=== PATIENT | male | born 1955 | race Caucasian/White ===

== ENCOUNTER 2016-10-05 20:36 | Emergency (ER) | payer OTHER ==
[~2016-10-05] VITALS: Ht 180.3 cm; Wt 64.2 kg
[~2016-10-05 20:36] MED LIST: AMAN100C18 PO; CARB1CAP21 PO; CARB1TAB PO; MULT-506 PO; RASA1TAB PO
[2016-10-05 20:44] VITALS: BP 96/61; PULSE 103; TEMP 36.9; O2SAT 97; Ht 180.3 cm; Wt 64.2 kg
--- NOTE | 2016-10-05 21:33 | DIAGNOSTIC IMAGING REPORT ---
LEFT SECOND FINGER 3 VIEWS CLINICAL HISTORY: Postreduction examination. Proximal interphalangeal joint dislocation. FINDINGS: 3 views of the left second finger are obtained. No prior studies are available for comparison at the time of dictation. The skeletal structures are well mineralized. No fracture is seen. The second metacarpophalangeal and interphalangeal joints are in anatomic alignment. Mild osteoarthritic change is present at the distal interphalangeal joint. Soft tissue edema is noted overlying the proximal interphalangeal joint. IMPRESSION: Soft tissue swelling with no radiographic evidence of fracture in the left second finger. Electronically signed by: Collins Noble M.D. 10/05/2016 9:31 PM Dictated Date/Time: 10/05/2016 9:30 PM
[2016-10-05] MEDS ORDERED: MELO7.5T5 PO (21:35)
[2016-10-05] MEDS ORDERED: METH500T37 PO (21:35)
[2016-10-05] MEDS ORDERED: CARB1CAP PO (21:35)
--- NOTE | 2016-10-05 22:22 | EMERGENCY ROOM VISIT NOTE ---
ED Visit Note First contact with patient: 21:06 CHIEF COMPLAINT: Left second finger injury times several hours HISTORY OF PRESENT ILLNESS: Patient is a [id number] 61-year-old white male who presents the emergency department accompanied by his for evaluation of a left second finger injury. He lost balance on the stairs and fell, injuring his left second finger. He had immediate onset of pain and deformity. There was no laceration or bleeding. He rates his pain a 7/10. He did not take any medications, nor perform his symptoms. He has been unable to move it at the PIP joint since and there is moderate and constant pain. He denies any numbness or tingling. REVIEW OF SYSTEMS: Review of systems as per HPI. All other systems reviewed were negative. At least 6 systems reviewed. PMH: Electronic medical records are reviewed and summarized as above/below. See Problem List. SOCIAL HISTORY: Patient living at home with his . He is retired. Nonsmoker. PHYSICAL EXAM: Vital Signs: Reviewed Nurse's notes. CONSTITUTIONAL: Patient is a pleasant, well-appearing 61-year-old white male who is awake and alert and seated at the bedside in no acute distress. is present at bedside as well. MUSCULOSKELETAL: Examination of the left second finger show an obvious deformity at the PIP joint with suspected dorsal dislocation of the middle phalanx. There is no pain over the MCP or the DIP. Capillary refills less than 2 seconds. Sensation to light touch is intact. Skin is intact without laceration. EMERGENCY DEPARTMENT COURSE: The patient was seen and evaluated as above. Options were discussed with the patient, and he was agreeable to a reduction attempt foregoing anesthesia. The left second PIP joint was reduced by applying a steady and rapid axial distraction and hyperextension of the middle phalanx at the PIP joint while the proximal portion was stabilized with the other hand. Following this motion of the joint was normal and full and the patient could move it normally also. Post-reduction X-ray shows normal anatomic alignment, without associated fracture. The patient declined analgesia. He was placed in a long metal finger splint. Differential diagnoses entertained included fracture, subluxation, dislocation, laceration, among others. Conservative care measures were discussed. He was advised to follow-up with orthopedics if he does not feel like his symptoms are improving. He was discharged home in good condition. The patient rated his pain a 2/10 at discharge. LEFT SECOND FINGER 3 VIEWS CLINICAL HISTORY: Postreduction examination. Proximal interphalangeal joint dislocation. FINDINGS: 3 views of the left second finger are obtained. No prior studies are available for comparison at the time of dictation. The skeletal structures are well mineralized. No fracture is seen. The second metacarpophalangeal and interphalangeal joints are in anatomic alignment. Mild osteoarthritic change is present at the distal interphalangeal joint. Soft tissue edema is noted overlying the proximal interphalangeal joint. IMPRESSION: Soft tissue swelling with no radiographic evidence of fracture in the left second finger. Problem List Medical Problems: (1) Parkinson disease Status: Chronic Current/Historical Medications Scheduled Amantadine Hcl (Amantadine Hcl), 100 MG PO TID Carbidopa-Levodopa (Rytary 48.75-195 mg), 2 CAP PO QID Multivitamin (Multivitamin), Unknown Dose PO DAILY Rasagiline Mesylate (Azilect), 1 MG PO DAILY Scheduled PRN Meloxicam (Mobic), 7.5 MG PO DAILY PRN for Pain Methocarbamol (Robaxin), 500 MG PO BID PRN for Pain Allergies Coded Allergies: No Known Allergies (Unverified , 01/29/16) Vital Signs Date Time Temp Pulse Resp B/P Pulse Ox O2 Delivery O2 Flow Rate FiO2 10/05/16 20:44 36.9 103 18 96/61 97 Room Air Departure Information Impression Primary Impression: Dislocation, finger, interphalangeal joint Referrals Milind Leyva M.D. (PCP) Patient Instructions [facility] Additional Instructions Ibuprofen(Motrin, Advil) may be used for fever or pain. Use 600mg every six hours as needed. Take with food. Avoid using more than 2400mg in a 24 hour period. Do not use 2400mg per day for more than three consecutive days without physician direction. Prolonged inappropriate use can lead to stomach upset or ulcers. This medication can be taken if you need to drive, work, or perform activities which may be dangerous when taking narcotic pain medication. (AND/OR) Acetaminophen(Tylenol) may be used for fever or pain. Use 1000mg every six hours as needed. Avoid using more than 3000mg in a 24 hour period. This medication can be taken if you need to drive, work, or perform activities which may be dangerous when taking narcotic pain medication. Ice compresses for 20 minutes at a time four times daily for 2-3 days. Use the metal finger splint as instructed. May remove for bathing, and for gentle range of motion exercises. Rest and elevate your injury. Continue current medications. Return to the ER immediately for any numbness, tingling, severe pain, extreme swelling in the extremity or as needed. Follow up with your primary care provider or with orthopedic surgery if you would like the finger reevaluated.
--- NOTE | 2016-10-05 22:29 | EMERGENCY ROOM VISIT NOTE ---
ED Visit Note First contact with patient: 21:06 I have personally evaluated this patient examined her and reviewed the pertinent labs and data. I have discussed the case with Lauren Sheriff, the physician assistant professor nurse education and agree with the plan. Please refer to the PA note. This patient suffered mechanical fall injuring his left index finger. It apparently was dislocated and reduced by Lauren Sheriff. Upon my assessment, it is relocated he feels better has no further complaints and there was no syncope. It was splinted and he'll be discharged home.
== END 2016-10-05 22:38 | disposition home or self-care (01) ==
LOC: C.EDB 20:37 → C.EDD 22:38
DX: S63.271A Dislocation of unspecified interphalangeal joint of left index finger, initial encounter (principal); W10.8XXA Fall (on) (from) other stairs and steps, initial encounter; G20 Parkinson's disease; Z79.899 Other long term (current) drug therapy

== ENCOUNTER → 2017-03-06 | Outpatient (CLI) | payer OTHER ==
[~2017-03-06] MED LIST changes: +CARB1CAP PO; -CARB1CAP21 PO; -CARB1TAB PO; +MELO7.5T5 PO; +METH500T37 PO
[2017-03-06 16:16] LABS: ALT/SGPT 9 U/L (12-78); BLOOD UREA NITROGEN 19 mg/dl (7-18); BUN/CREATININE RATIO 20.6 (10-20); CALCIUM 8.5 mg/dl (8.5-10.1); CARBON DIOXIDE 26 mmol/L (21-32); CHLORIDE 109 mmol/L (98-107); CHOLESTEROL 177 mg/dl (0-200); CREATININE 0.92 mg/dl (0.60-1.40); GLUCOSE 92 mg/dl (70-99); POTASSIUM 3.9 mmol/L (3.5-5.1); SODIUM 143 mmol/L (136-145)
[2017-03-06 16:31] LABS: ALB/GLOB RATIO 1.1 (0.9-2); ALKALINE PHOSPHATASE 90 U/L (45-117); AST/SGOT 16 U/L (15-37); CHOLESTEROL/HDL RATIO 3.8; HDL CHOLESTEROL 46 mg/dl; LDL CHOLESTEROL CALCULATED 121 mg/dl; TRIGLYCERIDES 48 mg/dl (0-150); VERY LOW DENSITY LIPOPROT CALC 10 mg/dl
== END | disposition home or self-care (01) ==
LOC: C.LABBC 10:05
PROVIDERS: ATTEND Nurse Practitioner Family
DX: Z13.1 Encounter for screening for diabetes mellitus (principal); Z13.220 Encounter for screening for lipoid disorders

== ENCOUNTER 2017-06-22 17:12 | Emergency (ER) | payer OTHER ==
[~2017-06-22] VITALS: Ht 180.3 cm; Wt 68.4 kg
[2017-06-22] MEDS ORDERED: SODIUM CHLORIDE 0.9% 500ML 500 ML IV STA (17:40)
--- NOTE | 2017-06-22 17:52 | EMERGENCY ROOM VISIT NOTE ---
History Report prepared by Sarina: Anupama Myles Under the Supervision of: Dr. Poli Crabtree M.D. First contact with patient: 17:28 Chief Complaint: NEURO SYMPTOMS Stated Complaint: CONFUSSION, SLURRED SPEECH, DIZZY,WEAK-PARKINSONS Nursing Triage Summary: patient presents ambulatory to triage with . patient states he has had frequent falls over the past couple days. reports she noticed some confusion yesterday. home nurse called at work today concerned that the confusion seems to be getting worse. patient answers questions appropriately in triage. patient has a hx of parkinsons. patient c/o pain in buttocks. "I fell landing on my butt. I am also tired all the time all I want to do is sleep." History of Present Illness The patient is a 62 year old male with a past medical history of Parkinson's Disease who presents to the ED with a cc of worsening neurological symptoms beginning a few days ago. Positive fatigue, increased falling, dizziness, increased confusion, slurred speech, increased hallucinations when he wakes up, constipation, abdominal pain from the constipation, and abnormal eating/drinking. Negative numbness, weakness, urinary symptoms, chest pain, cough, fevers, chills, nausea, vomiting, hitting his head, recent travel, being around someone sick recently, and changes in his Parkinson's medications. He notes that he saw his Parkinson's doctor a few months ago. He notes a recent change in his antidepressant medication. Source of History: patient Onset: a few days ago Position: other (global) Quality: other (neurological) Timing: worsening Associated Symptoms: + abdominal pain, + fatigue, No fevers, No chills, No cough, No chest pain, No nausea, No vomiting, No urinary symptoms, No weakness, No numbness Note: The patient complains of increased falling, dizziness, increased confusion, slurred speech, increased hallucinations when he wakes up, constipation, and abnormal eating/drinking. The patient denies hitting his head, recent travel, being around someone sick recently, and changes in his Parkinson's medications Review of Systems See HPI for pertinent positives and negatives. A total of ten systems were reviewed and were otherwise negative. Past Medical & Surgical Medical Problems: (1) Parkinson disease Family History Patient reports no known family medical history. Social History Smoking Status: Never Smoker Alcohol Use: none Marital Status: Housing Status: lives with significant other Occupation Status: disabled Current/Historical Medications Scheduled Amantadine Hcl (Amantadine Hcl), 100 MG PO TID Carbidopa-Levodopa (Rytary 48.75-195 mg), 2 CAP PO QID Escitalopram Oxalate (Lexapro), 5 MG PO QAM Multivitamin (Multivitamin), Unknown Dose PO DAILY Rasagiline Mesylate (Azilect), 1 MG PO DAILY Scheduled PRN Meloxicam (Mobic), 7.5 MG PO DAILY PRN for Pain Methocarbamol (Robaxin), 500 MG PO BID PRN for Pain Allergies Coded Allergies: No Known Allergies (Unverified , 06/22/17) Physical Exam Vital Signs Date Time Temp Pulse Resp B/P (MAP) Pulse Ox O2 Delivery O2 Flow Rate FiO2 06/22/17 21:09 80 20 156/96 98 06/22/17 20:17 60 20 150/97 96 Room Air 06/22/17 18:45 36.4 62 18 140/80 95 Room Air 06/22/17 17:59 96 Room Air 06/22/17 17:50 63 06/22/17 17:22 36.4 88 18 105/65 96 Room Air Physical Exam GENERAL: Awake, alert, emaciated in appearance, NAD, patient's movements are consistent with Parkinsonian symptoms. HENT: Normocephalic, atraumatic. EYES: Normal conjunctiva. Sclera non-icteric. NECK: Supple. No nuchal rigidity. FROM. RESPIRATORY: CTAB, no rhonchi, wheezing, crackles CARDIAC: RRR, no MRG ABDOMEN: Soft, nondistended, mild abdominal discomfort, nonsurgical abdomen, BS+ MSK: No chest wall TTP, no LE edema NEURO: GCS 15, CN 2-12 intact, moves all 4s on command, somewhat limited secondary to patient's Parkinsonian symptoms. SKIN: No rash or jaundice noted. Medical Decision & Procedures ER Provider Diagnostic Interpretation: Radiology results as stated below per my review and radiologist interpretation: CHEST ONE VIEW PORTABLE CLINICAL HISTORY: Weakness. COMPARISON STUDY: No previous studies for comparison. FINDINGS: Lung volumes are normal. No pneumothorax or pleural effusion is noted. There is no evidence for pulmonary edema. Linear left basilar opacity likely reflects atelectasis. Cardiac size is within normal limits. Mediastinal contours are normal. No evidence for pulmonary edema. IMPRESSION: 1. No acute cardiopulmonary findings. 2. Mild left basilar opacity which favors atelectasis. Electronically signed by: Dereck Lynn M.D. 06/22/2017 6:22 PM Dictated Date/Time: 06/22/2017 6:[address] OF THE HEAD WITHOUT CONTRAST CLINICAL HISTORY: Weakness. Slurred speech. COMPARISON STUDY: No previous studies for comparison. CT DOSE: 2561.49 mGy.cm TECHNIQUE: Helical axial images of the head were obtained without IV contrast. Automated exposure control was utilized for the study. A dose lowering technique was utilized adhering to the principles of ALARA. FINDINGS: No acute intracranial hemorrhage, midline shift or mass effect is present. Ventricular system is normal. Basilar cisterns are patent. There are no extra axial collections. Bach-white differentiation is maintained. There are no findings to suggest acute dural sinus thrombosis or acute territorial infarct. There are no significant calvarial abnormalities. There is minimal mucosal thickening of the right maxillary sinus. IMPRESSION: No acute intracranial findings. Electronically signed by: Dereck Lynn M.D. 06/22/2017 6:25 PM Dictated Date/Time: 06/22/2017 6:22 PM Laboratory Results 06/22/17 18:00 Red Blood Count 5.00, Mean Corpuscular Volume 86.2, Mean Corpuscular Hemoglobin 30.2, Mean Corpuscular Hemoglobin Concent 35.0, Mean Platelet Volume 10.0, Neutrophils (%) (Auto) 49.5, Lymphocytes (%) (Auto) 40.3, Monocytes (%) (Auto) 7.3, Eosinophils (%) (Auto) 1.8, Basophils (%) (Auto) 0.9, Neutrophils # (Auto) 2.79, Lymphocytes # (Auto) 2.27, Monocytes # (Auto) 0.41, Eosinophils # (Auto) 0.10, Basophils # (Auto) 0.05 06/22/17 18:00 Test 06/22/17 18:00 06/22/17 18:53 White Blood Count 5.63 K/uL (4.8-10.8) Red Blood Count 5.00 M/uL (4.7-6.1) Hemoglobin 15.1 g/dL (14.0-18.0) Hematocrit 43.1 % (42-52) Mean Corpuscular Volume 86.2 fL (80-100) Mean Corpuscular Hemoglobin 30.2 pg (25-34) Mean Corpuscular Hemoglobin Concent 35.0 g/dl (32-36) Platelet Count 241 K/uL (130-400) Mean Platelet Volume 10.0 fL (7.4-10.4) Neutrophils (%) (Auto) 49.5 % Lymphocytes (%) (Auto) 40.3 % Monocytes (%) (Auto) 7.3 % Eosinophils (%) (Auto) 1.8 % Basophils (%) (Auto) 0.9 % Neutrophils # (Auto) 2.79 K/uL (1.4-6.5) Lymphocytes # (Auto) 2.27 K/uL (1.2-3.4) Monocytes # (Auto) 0.41 K/uL (0.11-0.59) Eosinophils # (Auto) 0.10 K/uL (0-0.5) Basophils # (Auto) 0.05 K/uL (0-0.2) RDW Standard Deviation 43.0 fL (36.4-46.3) RDW Coefficient of Variation 13.7 % (11.5-14.5) Immature Granulocyte % (Auto) 0.2 % Immature Granulocyte # (Auto) 0.01 K/uL (0.00-0.02) Prothrombin Time 10.4 SECONDS (9.0-12.0) Prothromb Time International Ratio 1.0 (0.9-1.1) Activated Partial Thromboplast Time 27.2 SECONDS (21.0-31.0) Partial Thromboplastin Ratio 1.0 Anion Gap 7.0 mmol/L (3-11) Est Creatinine Clear Calc Drug Dose 72.9 ml/min Estimated GFR () 92.9 Estimated GFR (Non- 80.2 BUN/Creatinine Ratio 22.6 (10-20) Calcium Level 8.9 mg/dl (8.5-10.1) Magnesium Level 2.3 mg/dl (1.8-2.4) Total Bilirubin 0.8 mg/dl (0.2-1) Direct Bilirubin 0.1 mg/dl (0-0.2) Aspartate Amino Transf (AST/SGOT) 17 U/L (15-37) Alanine Aminotransferase (ALT/SGPT) 10 U/L (12-78) Alkaline Phosphatase 92 U/L (45-117) Troponin I < 0.015 ng/ml (0-0.045) Pro-B-Type Natriuretic Peptide 50 pg/ml (0-900) Total Protein 7.4 gm/dl (6.4-8.2) Albumin 3.9 gm/dl (3.4-5.0) Lipase 79 U/L (73-393) Thyroid Stimulating Hormone (TSH) 1.610 uIu/ml (0.300-4.500) Urine Color YELLOW Urine Appearance CLEAR (CLEAR) Urine pH 5.5 (4.5-7.5) Urine Specific [place] 1.026 (1.000-1.030) Urine Protein NEG (NEG) Urine Glucose (UA) NEG (NEG) Urine Ketones TRACE (NEG) Urine Occult Blood NEG (NEG) Urine Nitrite NEG (NEG) Urine Bilirubin NEG (NEG) Urine Urobilinogen NEG (NEG) Urine Leukocyte Esterase TRACE (NEG) Urine WBC (Auto) 1-5 /hpf (0-5) Urine RBC (Auto) 0-4 /hpf (0-4) Urine Hyaline Casts (Auto) 1-5 /lpf (0-5) Urine Epithelial Cells (Auto) 5-10 /lpf (0-5) Urine Bacteria (Auto) NEG (NEG) Laboratory results reviewed by me Medications Administered Medications (Trade) Dose Ordered Sig/Brett Route Start Time Stop Time Status Last Admin Dose Admin Sodium Chloride 500 ml @ 999 mls/hr Q31M STAT IV 06/22/17 17:40 06/22/17 18:10 DC 06/22/17 18:02 999 MLS/HR ECG Indication: weakness Rate (beats per minute): 62 Rhythm: normal sinus Findings: other (short DC, normal axis, no other STS or TWI changes) Change: Patient's electrocardiogram interpreted by me. ED Course 1730: The patient was evaluated in room A9B. A complete history and physical exam was performed. 2033: I reevaluated the patient and they would like to go home. Discussed results and discharge instructions: He verbalized understanding and agreement. The patient is ready for discharge. Medical Decision The patient is a 62 year old male with a past medical history of Parkinson's Disease who presents to the ED with a cc of worsening neurological symptoms beginning a few days ago. Differential diagnosis: Etiologies such as metabolic, infection, hypo/hyperglycemia, electrolyte abnormalities, cardiac sources, intracerebral event, toxicologic, neurologic, as well as others were entertained. Patient was seen in and evaluated the bedside. Patient has had some worsening confusion as well as some balance issues. On exam the patient does have parkinsonian type symptoms as he does have sporadic uncontrollable movements. Patient otherwise is able to answer questions appropriately. She stated 3 with GCS 15. Patient is a fairly normal neurologic exam given his parkinsonian features. Patient did have blood work completed, EKG, troponin, chest x-ray, CT brain, and urinalysis. Patient's blood work was fairly unremarkable. Troponin negative and EKG nonischemic. Patient's chest x-ray likely left-sided atelectasis. Patient was encouraged to take big deep breaths. Patient denied any cough less likely to be pneumonia specially with a normal white count and not requiring any oxygen and without tachypnea. Patient's urinalysis was negative for infection. CT brain was negative acute. I did discuss the safety of the patient as he has had some recurrent falls. No other signs of trauma to warrant any more advanced imaging. The states that she does have an in order for some additional at home help. Also stated that the patient should call his primary neurologist in order for a follow-up. Unfortunately this may be related to more advanced symptoms related to his Parkinson's. Patient was deemed suitable for outpatient follow-up and treatment at this time as the family is comfortable and wanted to go home. Patient was given strict follow-up , discharge, and return precautions. All questions were answered. Patient was deemed suitable for outpatient follow-up at this time. Patient agreed with the plan of care and was safely discharged home. The chart was completed utilizing [employer] Speech voice recognition software. Grammatical errors, random word insertions, pronoun errors, and incomplete sentences are an occasional consequence of this system due to software limitations, ambient noise, and hardware issues. Any formal questions or concerns about the content, text, or information contained within the body of this dictation should be directly addressed to the physician for clarification. Medication Reconcilliation Current Medication List: was personally reviewed by me Blood Pressure Screening Patient's blood pressure: Elevated blood pressure Blood pressure disposition: Elevated BP felt to be situational Impression Primary Impression: Parkinson disease Additional Impressions: Gait instability Falls frequently Scribe Attestation The scribe's documentation has been prepared under my direction and personally reviewed by me in its entirety. I confirm that the note above accurately reflects all work, treatment, procedures, and medical decision making performed by me. Departure Information Dispostion Home / Self-Care Referrals Tom Tripp III, CRNP (PCP) Milind Leyva M.D. Forms HOME CARE DOCUMENTATION FORM, IMPORTANT VISIT INFORMATION, WORK / SCHOOL INSTRUCTIONS Patient Instructions [facility], My [facility] Additional Instructions Please return to the emergency department if you have worsening or recurrent symptoms not amenable to at-home treatment. Please call for a follow-up appointment with her primary care physician. Please take your medications as prescribed. If you have other concerns and/or complaints please feel free to also call your primary care physician's office or return the ED for further evaluation, management, and treatment. Please call for a follow-up appointment with your neurologist. Take your medications as prescribed. You have been examined and treated today on an emergency basis only. This is not a substitute for, or an effort to provide, complete comprehensive medical care. It is impossible to recognize and treat all injuries or illnesses in a single emergency department visit. It is therefore important that you follow up closely with [facility], your PCP, and/or your specialist(s). Call as soon as possible for an appointment. Thank you for your time and consideration. I look forward to speaking with you again soon. Please don't hesitate to call us if you have any questions. Problem Qualifiers
[2017-06-22 17:59] VITALS: O2SAT 96; Ht 180.3 cm; Wt 68.4 kg
[2017-06-22 18:08] LABS: BASO % 0.9 %; BASO ABS # 0.05 K/uL (0-0.2); EOS % 1.8 %; HEMATOCRIT 43.1 % (42-52); HEMOGLOBIN 15.1 g/dL (14.0-18.0); IG# 0.01 K/uL (0.00-0.02); LYMPH % 40.3 %; LYMPH ABS # 2.27 K/uL (1.2-3.4); MEAN CELL VOLUME 86.2 fL (80-100); MEAN CORPUSCULAR HEMOGLOBIN 30.2 pg (25-34); MONO % 7.3 %; MONO ABS # 0.41 K/uL (0.11-0.59); NEUT % 49.5 %; NEUT ABS # 2.79 K/uL (1.4-6.5); PLATELET COUNT 241 K/uL (130-400); RED CELL DISTRIBUTION WIDTH CV 13.7 % (11.5-14.5); WHITE BLOOD COUNT 5.63 K/uL (4.8-10.8)
[2017-06-22 18:21] LABS: PTT PATIENT 27.2 SECONDS (21.0-31.0)
--- NOTE | 2017-06-22 18:23 | DIAGNOSTIC IMAGING REPORT ---
CHEST ONE VIEW PORTABLE CLINICAL HISTORY: Weakness. COMPARISON STUDY: No previous studies for comparison. FINDINGS: Lung volumes are normal. No pneumothorax or pleural effusion is noted. There is no evidence for pulmonary edema. Linear left basilar opacity likely reflects atelectasis. Cardiac size is within normal limits. Mediastinal contours are normal. No evidence for pulmonary edema. IMPRESSION: 1. No acute cardiopulmonary findings. 2. Mild left basilar opacity which favors atelectasis. Electronically signed by: Dereck Lnyn M.D. 06/22/2017 6:22 PM Dictated Date/Time: 06/22/2017 6:19 PM
--- NOTE | 2017-06-22 18:26 | DIAGNOSTIC IMAGING REPORT ---
CT OF THE HEAD WITHOUT CONTRAST CLINICAL HISTORY: Weakness. Slurred speech. COMPARISON STUDY: No previous studies for comparison. CT DOSE: 2561.49 mGy.cm TECHNIQUE: Helical axial images of the head were obtained without IV contrast. Automated exposure control was utilized for the study. A dose lowering technique was utilized adhering to the principles of ALARA. FINDINGS: No acute intracranial hemorrhage, midline shift or mass effect is present. Ventricular system is normal. Basilar cisterns are patent. There are no extra axial collections. Bach-white differentiation is maintained. There are no findings to suggest acute dural sinus thrombosis or acute territorial infarct. There are no significant calvarial abnormalities. There is minimal mucosal thickening of the right maxillary sinus. IMPRESSION: No acute intracranial findings. Electronically signed by: Dereck Lynn M.D. 06/22/2017 6:25 PM Dictated Date/Time: 06/22/2017 6:22 PM
[2017-06-22 18:27] LABS: ALBUMIN 3.9 gm/dl (3.4-5.0); ALT/SGPT 10 U/L (12-78); BLOOD UREA NITROGEN 22 mg/dl (7-18); CALCIUM 8.9 mg/dl (8.5-10.1); CARBON DIOXIDE 26 mmol/L (21-32); CREATININE 0.99 mg/dl (0.60-1.40); GLUCOSE 82 mg/dl (70-99); LIPASE 79 U/L (73-393); POTASSIUM 3.7 mmol/L (3.5-5.1); SODIUM 140 mmol/L (136-145)
[2017-06-22 18:41] LABS: ALKALINE PHOSPHATASE 92 U/L (45-117); AST/SGOT 17 U/L (15-37); TOTAL PROTEIN 7.4 gm/dl (6.4-8.2)
[2017-06-22 18:45] VITALS: TEMP 36.4
[2017-06-22] MEDS ORDERED: ESCI1TAB6 PO (18:51)
[2017-06-22 21:09] VITALS: BP 156/96; PULSE 80; O2SAT 98
--- NOTE | 2017-06-26 12:20 | Pharmacy Progress Note ---
ED Pharmacist Culture FollowUp Date of Service: Jun 26, 2017. Per paper nursing note from 06/25, Dr alejandra did not feel further treatment was necessary if patient wasn't experiencing urinary symptoms or fever. I attempted to call patient to confirm this but was unable to reach him and left a message.
== END 2017-06-22 21:10 | disposition home or self-care (01) ==
LOC: C.EDB 17:14 → C.EDA 21:10
DX: G20 Parkinson's disease (principal); R26.89 Other abnormalities of gait and mobility; R29.6 Repeated falls; K59.00 Constipation, unspecified

== ENCOUNTER 2017-08-24 14:58 | Emergency (ER) | payer OTHER ==
[~2017-08-24] VITALS: Ht 180.3 cm; Wt 72.4 kg
[~2017-08-24 14:58] MED LIST changes: +ESCI1TAB6 PO
[2017-08-24 15:06] VITALS: TEMP 36.4; Ht 180.3 cm; Wt 72.4 kg
[2017-08-24] MEDS ORDERED: SODIUM CHLORIDE 0.9% 1000ML 1,000 ML IV STA (15:32)
[2017-08-24 15:35] VITALS: O2SAT 96
--- NOTE | 2017-08-24 15:48 | DIAGNOSTIC IMAGING REPORT ---
CHEST ONE VIEW PORTABLE CLINICAL HISTORY: 62 years-old Male presenting with SEIZURE. TECHNIQUE: Portable upright AP view of the chest was obtained. COMPARISON: 06/22/2017. FINDINGS: Atherosclerosis of the aortic arch. Cardiac silhouette normal in size. Persistent bandlike opacity at the left lung base. No other focal opacity. No large effusion or pneumothorax. Degenerative changes of the thoracic spine. Upper abdomen normal. IMPRESSION: 1. Minimal left basilar atelectasis or scarring. No convincing evidence of acute cardiopulmonary disease. Electronically signed by: Braden Kapadia M.D. 08/24/2017 3:46 PM Dictated Date/Time: 08/24/2017 3:45 PM
[2017-08-24 15:55] LABS: BASO % 0.9 %; BASO ABS # 0.05 K/uL (0-0.2); EOS % 2.2 %; EOS ABS # 0.13 K/uL (0-0.5); HEMATOCRIT 42.7 % (42-52); HEMOGLOBIN 15.4 g/dL (14.0-18.0); IG# 0.02 K/uL (0.00-0.02); LYMPH % 33.6 %; LYMPH ABS # 1.94 K/uL (1.2-3.4); MEAN CELL VOLUME 86.3 fL (80-100); MEAN CORPUSCULAR HEMOGLOBIN 31.1 pg (25-34); MEAN CORPUSCULAR HGB CONC 36.1 g/dl (32-36); MEAN PLATELET VOLUME 9.7 fL (7.4-10.4); MONO % 8.3 %; MONO ABS # 0.48 K/uL (0.11-0.59); NEUT % 54.7 %; NEUT ABS # 3.16 K/uL (1.4-6.5); PLATELET COUNT 242 K/uL (130-400); RED CELL DISTRIBUTION WIDTH CV 13.3 % (11.5-14.5); RED CELL DISTRIBUTION WIDTH SD 42.3 fL (36.4-46.3); WHITE BLOOD COUNT 5.78 K/uL (4.8-10.8)
[2017-08-24 16:04] LABS: PTT PATIENT 28.2 SECONDS (21.0-31.0)
[2017-08-24 16:14] LABS: CALCIUM 8.9 mg/dl (8.5-10.1); CREATININE 0.82 mg/dl (0.60-1.40); POTASSIUM 3.9 mmol/L (3.5-5.1)
[2017-08-24] MEDS ORDERED: LEVETIRACETAM IV 1,500 MG in DEXTROSE 5% 100ML 100 ML IV ONE (16:15)
[2017-08-24] MEDS ORDERED: ENALAPRILAT IV 1.25 MG in DEXTROSE 5% 25ML 25 ML IV STA (16:17)
[2017-08-24] MEDS ORDERED: HydrALAZINE HCL 20 MG/ML VIAL IV. STA (16:17)
[2017-08-24] MEDS ORDERED: ESCI10TA17 PO (16:21)
--- NOTE | 2017-08-24 16:21 | DIAGNOSTIC IMAGING REPORT ---
CT SCAN OF THE BRAIN WITHOUT IV CONTRAST CLINICAL HISTORY: Seizure. Fall. COMPARISON STUDY: CT of the brain dated 06/22/2017. TECHNIQUE: Unenhanced axial CT scan of the brain is performed from the vertex to the skull base. A dose lowering technique was utilized adhering to the principles of ALARA. CT DOSE: 765.09 mGycm FINDINGS: Brain parenchyma: There is acute hemorrhage identified filling the right quadrigeminal plate cistern. Trace hemorrhage is seen within the left quadrigeminal plate cistern. Additionally, there is a 7 mm focus of acute hemorrhage identified in the high left frontal lobe seen on image #25. There may be trace adjacent subarachnoid extension. There is no midline shift or evidence of acute territorial ischemia by CT criteria. Bach-white matter is preserved. No extra-axial fluid collection is seen. Ventricles, sulci, cisterns: Normal in configuration. See above. Intracranial vasculature: There is mild atherosclerotic calcification of the cavernous carotid and vertebral arteries. Calvarium: There is no depressed fracture. Sinuses and mastoids: Mild mucosal thickening is seen in the right maxillary antrum. The remaining visualized paranasal sinuses are clear. There are trace mastoid effusions. Orbits: The bony orbits are grossly intact. IMPRESSION: 1. There is acute intracranial hemorrhage identified within the right quadrigeminal plate cistern. Trace hemorrhage is seen within the left quadrigeminal plate cistern. 2. There is a subcentimeter focus of acute parenchymal hemorrhage identified in the high left frontal lobe. There may be trace adjacent subarachnoid extension. 3. There is no midline shift or evidence of acute territorial ischemia by CT criteria. 4. No depressed calvarial fracture is seen. Findings were discussed with Dr. Crabtree in the emergency department at the time of interpretation. Electronically signed by: Collins Noble M.D. 08/24/2017 4:20 PM Dictated Date/Time: 08/24/2017 4:13 PM
[2017-08-24 16:25] LABS: PHOSPHORUS 3.4 mg/dl (2.5-4.9)
--- NOTE | 2017-08-24 17:11 | EMERGENCY ROOM VISIT NOTE ---
History Report prepared by Sarina: Christopher Gonsales Under the Supervision of: Dr. Poli Crabtree M.D. First contact with patient: 15:01 Chief Complaint: FALL Stated Complaint: POSS. SEIZURE History of Present Illness The patient is a 62 year old white male with a past medical history of Parkinson 's Disease who presents to the Emergency Room with concerns over a recent falling episode that began 1 hour at 15 minutes ago. The patient does not remember the fall, and the patient's at bedside notes that it was witnessed by the caregiver. The notes that the caregiver did see some shaking, but is unaware to what degree. She did note that the patient fell near a vanity in the bathroom, which is what he may have impacted his forehead on as he fell to the ground. He did not bite his tongue, but he did become incontinent of his bladder. He is not on any blood thinners. The patient has no complaints of chest pain, shortness of breath. He does have pain over his forehead where he hit his head on the vanity and some discomfort in his left shoulder. Source of History: patient, family Onset: 1 hour 15 minutes ago Position: head Quality: other (Traumatic fall) Timing: other (Falling episode) Note: head pain, left shoulder pain. Review of Systems See HPI for pertinent positives and negatives. A total of ten systems were reviewed and were otherwise negative. Past Medical & Surgical Medical Problems: (1) Parkinson disease Family History Patient reports no known family medical history. Social History Smoking Status: Never Smoker Alcohol Use: none Marital Status: Housing Status: lives with significant other Occupation Status: disabled Current/Historical Medications Scheduled Amantadine Hcl (Amantadine Hcl), 100 MG PO TID Carbidopa-Levodopa (Rytary 48.75-195 mg), 2 CAP PO 6XDAILY Escitalopram (Lexapro), 10 MG PO DAILY Multivitamin (Multivitamin), 1 TAB PO DAILY Rasagiline Mesylate (Azilect), 1 MG PO DAILY Scheduled PRN Meloxicam (Mobic), 7.5 MG PO DAILY PRN for Pain Methocarbamol (Robaxin), 500 MG PO BID PRN for Pain Allergies Coded Allergies: No Known Allergies (Unverified , 08/24/17) Physical Exam Vital Signs Date Time Temp Pulse Resp B/P (MAP) Pulse Ox O2 Delivery O2 Flow Rate FiO2 08/24/17 19:12 72 18 134/78 97 Room Air 08/24/17 18:34 74 20 144/85 97 Room Air 08/24/17 17:05 88 18 137/88 97 Room Air 08/24/17 16:22 69 22 161/86 98 Room Air 08/24/17 15:35 97 Room Air 08/24/17 15:35 96 Room Air 08/24/17 15:31 62 08/24/17 15:06 36.4 63 20 159/89 95 Room Air Physical Exam GENERAL: Awake, alert, well-appearing, NAD HENT: There is a small superficial laceration to the forehead and bruising to the left temporal area. PERRL 2 mm bilaterally. No anisocoria. EOMI. EYES: Normal conjunctiva. Sclera non-icteric. NECK: Supple. No nuchal rigidity. FROM. RESPIRATORY: CTAB, no rhonchi, wheezing, crackles CARDIAC: RRR, no MRG ABDOMEN: Soft, NTND, BS+ MSK: No midline c-spine TTP. No chest wall TTP, no LE edema. No RUE tenderness. Some LUE shoulder pain. NVI distally, no obvious deformities. Symmetric strength in BUE. No focal deficits. NEURO: GCS 15, CN 2-12 intact, moves all 4s on command SKIN: No rash or jaundice noted. Medical Decision & Procedures ER Provider Diagnostic Interpretation: Radiology results as stated below per my review and radiologist interpretation: CHEST ONE VIEW PORTABLE CLINICAL HISTORY: 62 years-old Male presenting with SEIZURE. TECHNIQUE: Portable upright AP view of the chest was obtained. COMPARISON: 06/22/2017. FINDINGS: Atherosclerosis of the aortic arch. Cardiac silhouette normal in size. Persistent bandlike opacity at the left lung base. No other focal opacity. No large effusion or pneumothorax. Degenerative changes of the thoracic spine. Upper abdomen normal. IMPRESSION: 1. Minimal left basilar atelectasis or scarring. No convincing evidence of acute cardiopulmonary disease. Electronically signed by: Braden Kapadia M.D. 08/24/2017 3:46 PM Dictated Date/Time: 08/24/2017 3:[address] SCAN OF THE BRAIN WITHOUT IV CONTRAST CLINICAL HISTORY: Seizure. Fall. COMPARISON STUDY: CT of the brain dated 06/22/2017. TECHNIQUE: Unenhanced axial CT scan of the brain is performed from the vertex to the skull base. A dose lowering technique was utilized adhering to the principles of ALARA. CT DOSE: 765.09 mGycm FINDINGS: Brain parenchyma: There is acute hemorrhage identified filling the right quadrigeminal plate cistern. Trace hemorrhage is seen within the left quadrigeminal plate cistern. Additionally, there is a 7 mm focus of acute hemorrhage identified in the high left frontal lobe seen on image #25. There may be trace adjacent subarachnoid extension. There is no midline shift or evidence of acute territorial ischemia by CT criteria. Bach-white matter is preserved. No extra-axial fluid collection is seen. Ventricles, sulci, cisterns: Normal in configuration. See above. Intracranial vasculature: There is mild atherosclerotic calcification of the cavernous carotid and vertebral arteries. Calvarium: There is no depressed fracture. Sinuses and mastoids: Mild mucosal thickening is seen in the right maxillary antrum. The remaining visualized paranasal sinuses are clear. There are trace mastoid effusions. Orbits: The bony orbits are grossly intact. IMPRESSION: 1. There is acute intracranial hemorrhage identified within the right quadrigeminal plate cistern. Trace hemorrhage is seen within the left quadrigeminal plate cistern. 2. There is a subcentimeter focus of acute parenchymal hemorrhage identified in the high left frontal lobe. There may be trace adjacent subarachnoid extension. 3. There is no midline shift or evidence of acute territorial ischemia by CT criteria. 4. No depressed calvarial fracture is seen. Findings were discussed with Dr. Crabtree in the emergency department at the time of interpretation. Electronically signed by: Collins Noble M.D. 08/24/2017 4:20 PM Dictated Date/Time: 08/24/2017 4:13 PM Laboratory Results 08/24/17 15:40 Red Blood Count 4.95, Mean Corpuscular Volume 86.3, Mean Corpuscular Hemoglobin 31.1, Mean Corpuscular Hemoglobin Concent 36.1, Mean Platelet Volume 9.7, Neutrophils (%) (Auto) 54.7, Lymphocytes (%) (Auto) 33.6, Monocytes (%) (Auto) 8.3, Eosinophils (%) (Auto) 2.2, Basophils (%) (Auto) 0.9, Neutrophils # (Auto) 3.16, Lymphocytes # (Auto) 1.94, Monocytes # (Auto) 0.48, Eosinophils # (Auto) 0.13, Basophils # (Auto) 0.05 08/24/17 15:40 Test 08/24/17 15:40 08/24/17 16:20 White Blood Count 5.78 K/uL (4.8-10.8) Red Blood Count 4.95 M/uL (4.7-6.1) Hemoglobin 15.4 g/dL (14.0-18.0) Hematocrit 42.7 % (42-52) Mean Corpuscular Volume 86.3 fL (80-100) Mean Corpuscular Hemoglobin 31.1 pg (25-34) Mean Corpuscular Hemoglobin Concent 36.1 g/dl (32-36) Platelet Count 242 K/uL (130-400) Mean Platelet Volume 9.7 fL (7.4-10.4) Neutrophils (%) (Auto) 54.7 % Lymphocytes (%) (Auto) 33.6 % Monocytes (%) (Auto) 8.3 % Eosinophils (%) (Auto) 2.2 % Basophils (%) (Auto) 0.9 % Neutrophils # (Auto) 3.16 K/uL (1.4-6.5) Lymphocytes # (Auto) 1.94 K/uL (1.2-3.4) Monocytes # (Auto) 0.48 K/uL (0.11-0.59) Eosinophils # (Auto) 0.13 K/uL (0-0.5) Basophils # (Auto) 0.05 K/uL (0-0.2) RDW Standard Deviation 42.3 fL (36.4-46.3) RDW Coefficient of Variation 13.3 % (11.5-14.5) Immature Granulocyte % (Auto) 0.3 % Immature Granulocyte # (Auto) 0.02 K/uL (0.00-0.02) Prothrombin Time 10.3 SECONDS (9.0-12.0) Prothromb Time International Ratio 1.0 (0.9-1.1) Activated Partial Thromboplast Time 28.2 SECONDS (21.0-31.0) Partial Thromboplastin Ratio 1.1 Anion Gap 5.0 mmol/L (3-11) Est Creatinine Clear Calc Drug Dose 93.2 ml/min Estimated GFR () 108.3 Estimated GFR (Non- 93.5 BUN/Creatinine Ratio 26.9 (10-20) Calcium Level 8.9 mg/dl (8.5-10.1) Phosphorus Level 3.4 mg/dl (2.5-4.9) Magnesium Level 2.4 mg/dl (1.8-2.4) Thyroid Stimulating Hormone (TSH) 0.664 uIu/ml (0.300-4.500) Urine Color YELLOW Urine Appearance CLEAR (CLEAR) Urine pH 6.0 (4.5-7.5) Urine Specific Bearden 1.024 (1.000-1.030) Urine Protein NEG (NEG) Urine Glucose (UA) NEG (NEG) Urine Ketones TRACE (NEG) Urine Occult Blood NEG (NEG) Urine Nitrite NEG (NEG) Urine Bilirubin NEG (NEG) Urine Urobilinogen NEG (NEG) Urine Leukocyte Esterase SMALL (NEG) Urine WBC (Auto) 1-5 /hpf (0-5) Urine RBC (Auto) 0-4 /hpf (0-4) Urine Hyaline Casts (Auto) 1-5 /lpf (0-5) Urine Epithelial Cells (Auto) 0-5 /lpf (0-5) Urine Bacteria (Auto) 1+ (NEG) Laboratory results reviewed by me Medications Administered Medications (Trade) Dose Ordered Sig/Brett Route Start Time Stop Time Status Last Admin Dose Admin Sodium Chloride 1,000 ml @ 999 mls/hr Q1H1M STAT IV 08/24/17 15:32 08/24/17 16:34 DC 08/24/17 15:41 999 MLS/HR Levetiracetam 1500 mg/Dextrose 115 ml @ 440 mls/hr ONE ONCE IV 08/24/17 16:15 08/24/17 16:30 DC 08/24/17 16:49 440 MLS/HR Enalaprilat 1.25 mg/Dextrose 26 ml @ 100 mls/hr ONE STAT IV 08/24/17 16:17 08/24/17 16:34 DC 08/24/17 16:49 100 MLS/HR Hydralazine HCl (HydrALAZINE INJ) 5 mg NOW STAT IV. 08/24/17 16:17 08/24/17 16:19 DC 08/24/17 16:49 5 MG Carbidopa/Levodopa (Sinemet Cr 50/ 200MG Tab) 1 tab ONE STAT PO 08/24/17 18:17 418 18:19 DC 08/24/17 18:30 1 TAB Amantadine HCl (Symmetrel Cap) 100 mg ONE STAT PO 08/24/17 18:17 418 18:19 DC 08/24/17 18:29 100 MG ECG Per My Interpretation Indication: other (Traumatic Fall) Rate (beats per minute): 61 Rhythm: normal sinus Findings: other (Normal intervals, Normal axis, Motion artifact present. Likely LVH, no STS or TWI) ED Course 1519: The patient was evaluated in room B2. A complete history and physical exam was performed. 1532: Ordered Sodium Chloride 1000 mL @ 999 mL/hr IV. 1615: Ordered Levetiracetam 115 mL @ 440 mL/hr IV, Hydralazine HCl 5 mg IV, Enalaprilat 1.25 mg/Dextrose 26 mL @ 100 mL/hr IV. 1616: The radiology department called me at this time. They made me aware of the patient's head bleed at this time. 1655: I discussed the case with Dr. Shukla - [facility]. He will accept the patient for transfer to [facility] ER. Medical Decision The patient is a 62 year old white male with a past medical history of Parkinson 's Disease who presents to the Emergency Room with concerns over a recent falling episode that began 1 hour at 15 minutes ago. Nursing notes reviewed. Ancillary studies and prior records reviewed. Differential diagnosis: Etiologies such as vasovagal event, infection, hypoglycemia, electrolyte abnormalities, cardiac sources, intracerebral event, toxicologic, neurologic, as well as others were entertained. Patient was seen and evaluated the bedside. Patient does have a prior history of Parkinson's disease. Patient had a reported fall that occurred about an hour and 50 minutes prior to arrival. Unsure as to whether not the syncope over the patient does not remember the event. Positive LOC. Patient does not take any blood thinning medications. This occurred in the bathroom the patient may have at the vanity in the floor. There was questionable shaking although it was not well reported in terms of localization or duration as the was not there and was only seen by 1 of the caregivers. Patient does not take any blood thinning medications. Patient does see Dr. Leyva with neurology. On exam patient does have a small laceration to the forehead and does have a contusion and mild bruising to the left temporal area. Patient's neurologic exam was fairly unremarkable difficult to assess pronator drift or dysmetria given the patient's Parkinson's disease with the patient did not complain of any headache numbness tingling or weakness in the patient's strength is symmetric. Patient did have blood work completed, EKG, troponin, chest x-ray, and CT the brain. Patient's chest x-ray was clear. The shoulder appears to be intact. Patient CT the brain was concerning for hemorrhage. Per radiology unsure as to whether or not this could be related to his subarachnoid. Given that the patient did have a syncopal event and questionable seizure this could be that the patient does have subarachnoid which then caused his syncopal event and seizure as opposed to a traumatic fall. Patient's EKG showed mild LVH but no ischemic changes. Patient's other blood work is fairly unremarkable. Patient had normal H&H, platelet count, coagulation studies. Given that the patient did have hemorrhage she was placed on Keppra and was given 2 antihypertensives to help improve his blood pressure as his systolic was initially 160. Repeat was less than 140. A transfer was initiated to [facility]. I did speak with 1 of the emergency medicine physicians at [facility] who agreed to accept the patient in further eval and treat the patient. We did discuss that no other imaging was obtained at this time as the patient did not have any acute symptomatic complaints including headache. Patient denies any neck pain and only had some mild left shoulder pain which appears negative on chest film. Some of his home medications were ordered as they were pending. Patient was transferred to [facility]. Medication Reconcilliation Current Medication List: was personally reviewed by me Blood Pressure Screening Patient's blood pressure: Elevated blood pressure Referred to food concession manager Consults Time Called: 1612 Consulting Physician: Radiology Department Returned Call: 1615 The radiology department called me at this time. They made me aware of the patient's head bleed at this time. Additional Consults: Time Called: 1650 Consulted Physician: Dr. Shukla [facility] Returned Call: 1655 Additional Comments: I discussed the case [facility]. He will accept the patient for transfer to [facility] ER. Impression Primary Impression: Acute intra-cranial hemorrhage Additional Impressions: Fall Parkinson disease Contusion of multiple sites Critical Care I have personally spent greater than 50 minutes of critical care time in the direct management of this patient. This includes bedside care, interpretation of diagnostic studies, and testing, discussion with consultants, patient, and family members, and other required patient management activities. This 50 minutes is in excess of all separately billable procedures. Scribe Attestation The scribe's documentation has been prepared under my direction and personally reviewed by me in its entirety. I confirm that the note above accurately reflects all work, treatment, procedures, and medical decision making performed by me. Departure Information Dispostion Transfer Acute Care Facility (Dr. Shukla - [facility]) Referrals Tom Tripp III, CRNP (PCP) Patient Instructions My [facility] Problem Qualifiers Additional Impressions: Fall Encounter type: initial encounter Qualified Codes: W19.XXXA - Unspecified fall, initial encounter
[2017-08-24] MEDS ORDERED: AMANTADINE HCL 100 MG CAP PO STA (18:17)
[2017-08-24] MEDS ORDERED: CARBIDOPA/LEVODOPA 50/200MG EXT REL TAB PO STA (18:17)
[2017-08-24 19:12] VITALS: BP 134/78; PULSE 72; O2SAT 97
== END 2017-08-24 19:28 | disposition short-term general hospital (02) ==
LOC: EDBD 14:58 → C.EDB 14:59
DX: S06.350A Traumatic hemorrhage of left cerebrum without loss of consciousness, initial encounter (principal); S01.81XA Laceration without foreign body of other part of head, initial encounter; W19.XXXA Unspecified fall, initial encounter; G20 Parkinson's disease; Z79.899 Other long term (current) drug therapy; M25.512 Pain in left shoulder

== ENCOUNTER 2017-09-15 11:57 | Emergency (ER) | payer OTHER ==
[~2017-09-15] VITALS: Ht 182.9 cm; Wt 64.3 kg
[~2017-09-15 11:57] MED LIST changes: +ESCI10TA17 PO; -ESCI1TAB6 PO
[2017-09-15 12:04] VITALS: TEMP 37.1; Ht 182.9 cm; Wt 64.3 kg
[2017-09-15 12:09] VITALS: O2SAT 95
[2017-09-15] MEDS ORDERED: DOCU100C31 PO (12:10)
[2017-09-15] MEDS ORDERED: MELA1TAB49 PO (12:10)
[2017-09-15] MEDS ORDERED: AZL/5 PO (12:10)
[2017-09-15] MEDS ORDERED: HEPA1INJ22 SC (12:10)
[2017-09-15 12:29] LABS: BASO % 0.5 %; BASO ABS # 0.03 K/uL (0-0.2); EOS % 1.7 %; HEMATOCRIT 42.4 % (42-52); HEMOGLOBIN 14.6 g/dL (14.0-18.0); IG# 0.01 K/uL (0.00-0.02); LYMPH % 34.2 %; LYMPH ABS # 2.01 K/uL (1.2-3.4); MEAN CELL VOLUME 89.6 fL (80-100); MEAN CORPUSCULAR HEMOGLOBIN 30.9 pg (25-34); MEAN CORPUSCULAR HGB CONC 34.4 g/dl (32-36); MEAN PLATELET VOLUME 9.8 fL (7.4-10.4); MONO % 9.4 %; MONO ABS # 0.55 K/uL (0.11-0.59); NEUT ABS # 3.18 K/uL (1.4-6.5); PLATELET COUNT 278 K/uL (130-400); RED CELL DISTRIBUTION WIDTH SD 45.9 fL (36.4-46.3); WHITE BLOOD COUNT 5.88 K/uL (4.8-10.8)
--- NOTE | 2017-09-15 12:30 | DIAGNOSTIC IMAGING REPORT ---
CHEST ONE VIEW PORTABLE CLINICAL HISTORY: EVALUATE ALTERED MENTAL STATUS/WEAKNESS COMPARISON STUDY: Chest radiograph August 24, 2017. FINDINGS: Linear bibasilar opacities favor atelectasis. There is no consolidation to suggest pneumonia and there is no evidence for pulmonary edema. Skin folds project over the right hemithorax. Cardiomediastinal silhouette is normal. IMPRESSION: No acute cardiopulmonary findings. Electronically signed by: Dereck Lynn M.D. 09/15/2017 12:28 PM Dictated Date/Time: 09/15/2017 12:26 PM
[2017-09-15 12:46] LABS: ALBUMIN 3.9 gm/dl (3.4-5.0); ALT/SGPT 13 U/L (12-78); AST/SGOT 17 U/L (15-37); BLOOD UREA NITROGEN 20 mg/dl (7-18); CALCIUM 8.9 mg/dl (8.5-10.1); CARBON DIOXIDE 28 mmol/L (21-32); CREATININE 1.06 mg/dl (0.60-1.40); GLUCOSE 91 mg/dl (70-99); POTASSIUM 4.2 mmol/L (3.5-5.1); SODIUM 139 mmol/L (136-145)
--- NOTE | 2017-09-15 12:50 | DIAGNOSTIC IMAGING REPORT ---
HEAD WITHOUT CONTRAST (CT) CLINICAL HISTORY: 62 years-old Male with EVALUATE ALTERED MENTAL STATUS/WEAKNESS. Acute weakness with altered mental status TECHNIQUE: Multiple axial CT images of the head were obtained without contrast. A dose lowering technique was utilized adhering to the principles of ALARA. CT DOSE: 767.83 mGy.cm COMPARISON: Head CT 08/24/2017. FINDINGS: 3 mm focus of cortically based hemorrhage is again noted involving the left frontal lobe near the vertex, image 25 series 2 which is unchanged from comparison. The previously noted larger 5 mm focus of intraparenchymal hemorrhage noted just inferiorly to this area on comparison is no longer present. There is also resolution of the previously noted hemorrhage within the quadrigeminal plate cistern. No midline shift, significant mass effect or new intracranial hemorrhage identified. No hydrocephalus, intracranial mass or territorial ischemia. Study is mildly motion degraded. Partially imaged mucosal thickening of the inferior right maxillary sinus appears mild. The remaining paranasal sinuses appear clear. Mastoid air cells are also clear. No skull fracture identified. Soft tissues and orbits are within normal limits. IMPRESSION: 1. Unchanged 3 mm focus of cortically based hemorrhage involves the left frontal lobe near the vertex with resolution of the previously described additional left frontal lobe and quadrigeminal plate hemorrhage. No midline shift or significant mass effect. 2. No acute intracranial abnormality identified. The above report was generated using voice recognition software. It may contain grammatical, syntax or spelling errors. Electronically signed by: Cheikh Amador M.D. 09/15/2017 12:48 PM Dictated Date/Time: 09/15/2017 12:39 PM
[2017-09-15 12:51] LABS: INR 1.1 (0.9-1.1); PTT PATIENT 37.8 SECONDS (21.0-31.0)
[2017-09-15 12:57] LABS: ALKALINE PHOSPHATASE 93 U/L (45-117); TOTAL PROTEIN 7.4 gm/dl (6.4-8.2)
[2017-09-15] MEDS ORDERED: LEVETIRACETAM 250 MG TAB PO STA (13:13)
[2017-09-15] MEDS ORDERED: LEVE250T PO (13:23)
--- NOTE | 2017-09-15 13:28 | EMERGENCY ROOM VISIT NOTE ---
History Report prepared by Sarina: Jeremiah Conti Under the Supervision of: Dr. Yaya Coles D.O. First contact with patient: 11:58 Stated Complaint: ALTERED MENTAL STATUS History of Present Illness The patient is a 62 year old male who presents to the Emergency Room by EMS with complaints of constant altered mental status beginning yesterday. Per EMS, the patient is reported to have had an episode of seizure-like activity yesterday according to the patient's . They note that the patient has speech slur, but this is baseline for him. The patient had an intracranial bleed earlier this month. He is currently at [facility]. He denies headache, SOB, or chest pain. The patient reports having hallucinations. He has no prior history of seizures. Source of History: patient Onset: Yesterday Quality: other (altered mental status) Timing: constant Associated Symptoms: No headache, No chest pain, No SOB Note: The patient reports having hallucinations. Review of Systems See HPI for pertinent positives & negatives. A total of 10 systems reviewed and were otherwise negative. Past Medical & Surgical Medical Problems: (1) Parkinson disease Family History Patient reports no known family medical history. Social History Smoking Status: Never Smoker Alcohol Use: none Marital Status: Housing Status: lives with significant other Occupation Status: disabled Current/Historical Medications Scheduled Amantadine Hcl (Amantadine Hcl), 100 MG PO TID Carbidopa-Levodopa (Rytary 48.75-195 mg), 2 CAP PO 6XDAILY Docusate Sodium (Docusate Sodium), 100 MG PO BID Heparin Sodium (Porcine) (Heparin Sodium), 5,000 UNITS SC Q8 Levetiracetam (Keppra), 250 MG PO BID Melatonin (Melatonin), 3 MG PO HS Rasagiline (Azilect), 1 MG PO DAILY Allergies Coded Allergies: No Known Allergies (Unverified , 08/24/17) Physical Exam Vital Signs Date Time Temp Pulse Resp B/P (MAP) Pulse Ox O2 Delivery O2 Flow Rate FiO2 09/15/17 12:40 61 16 124/71 96 Room Air 09/15/17 12:09 95 Room Air 09/15/17 12:07 75 09/15/17 12:04 37.1 70 16 113/67 95 Room Air Physical Exam GENERAL: Patient is awake, alert, and non-anxious appearing. EYES: The conjunctivae are clear. The pupils are round and reactive. EARS, NOSE, MOUTH AND THROAT: The nose is without any evidence of any deformity. Mucous membranes are moist tongue is midline NECK: The neck is nontender and supple. RESPIRATORY: Normal respiratory effort is noted there is no evidence of wheezing rhonchi or rales CARDIOVASCULAR: Regular rate and rhythm noted there no murmurs rubs or gallops normal S1 normal S2 GASTROINTESTINAL: The abdomen is soft. Bowel sounds are present in all quadrants. Abdomen is nontender MUSCULOSKELETAL/EXTREMITIES: There is no evidence of gross deformity full range of motion is noted in the hips and shoulders SKIN: There is no obvious evidence of any rash. There are no petechiae, pallor or cyanosis noted. NEUROLOGIC: Awake and oriented to person, place and time. Strength symmetric. Speech was dysarthric but understandable. Follows commands appropriately. Medical Decision & Procedures ER Provider Diagnostic Interpretation: Radiology results as stated below per my review and radiologist interpretation: HEAD WITHOUT CONTRAST (CT) FINDINGS: 3 mm focus of cortically based hemorrhage is again noted involving the left frontal lobe near the vertex, image 25 series 2 which is unchanged from comparison. The previously noted larger 5 mm focus of intraparenchymal hemorrhage noted just inferiorly to this area on comparison is no longer present. There is also resolution of the previously noted hemorrhage within the quadrigeminal plate cistern. No midline shift, significant mass effect or new intracranial hemorrhage identified. No hydrocephalus, intracranial mass or territorial ischemia. Study is mildly motion degraded. Partially imaged mucosal thickening of the inferior right maxillary sinus appears mild. The remaining paranasal sinuses appear clear. Mastoid air cells are also clear. No skull fracture identified. Soft tissues and orbits are within normal limits. IMPRESSION: 1. Unchanged 3 mm focus of cortically based hemorrhage involves the left frontal lobe near the vertex with resolution of the previously described additional left frontal lobe and quadrigeminal plate hemorrhage. No midline shift or significant mass effect. 2. No acute intracranial abnormality identified. The above report was generated using voice recognition software. It may contain grammatical, syntax or spelling errors. Electronically signed by: Cheikh Amador M.D. 09/15/2017 12:48 PM CHEST ONE VIEW PORTABLE FINDINGS: Linear bibasilar opacities favor atelectasis. There is no consolidation to suggest pneumonia and there is no evidence for pulmonary edema. Skin folds project over the right hemithorax. Cardiomediastinal silhouette is normal. IMPRESSION: No acute cardiopulmonary findings. Electronically signed by: Dereck Lynn M.D. 09/15/2017 12:28 PM Laboratory Results 09/15/17 12:15 Red Blood Count 4.73, Mean Corpuscular Volume 89.6, Mean Corpuscular Hemoglobin 30.9, Mean Corpuscular Hemoglobin Concent 34.4, Mean Platelet Volume 9.8, Neutrophils (%) (Auto) 54.0, Lymphocytes (%) (Auto) 34.2, Monocytes (%) (Auto) 9.4, Eosinophils (%) (Auto) 1.7, Basophils (%) (Auto) 0.5, Neutrophils # (Auto) 3.18, Lymphocytes # (Auto) 2.01, Monocytes # (Auto) 0.55, Eosinophils # (Auto) 0.10, Basophils # (Auto) 0.03 09/15/17 12:15 Test 09/15/17 12:15 White Blood Count 5.88 K/uL (4.8-10.8) Red Blood Count 4.73 M/uL (4.7-6.1) Hemoglobin 14.6 g/dL (14.0-18.0) Hematocrit 42.4 % (42-52) Mean Corpuscular Volume 89.6 fL (80-100) Mean Corpuscular Hemoglobin 30.9 pg (25-34) Mean Corpuscular Hemoglobin Concent 34.4 g/dl (32-36) Platelet Count 278 K/uL (130-400) Mean Platelet Volume 9.8 fL (7.4-10.4) Neutrophils (%) (Auto) 54.0 % Lymphocytes (%) (Auto) 34.2 % Monocytes (%) (Auto) 9.4 % Eosinophils (%) (Auto) 1.7 % Basophils (%) (Auto) 0.5 % Neutrophils # (Auto) 3.18 K/uL (1.4-6.5) Lymphocytes # (Auto) 2.01 K/uL (1.2-3.4) Monocytes # (Auto) 0.55 K/uL (0.11-0.59) Eosinophils # (Auto) 0.10 K/uL (0-0.5) Basophils # (Auto) 0.03 K/uL (0-0.2) RDW Standard Deviation 45.9 fL (36.4-46.3) RDW Coefficient of Variation 14.0 % (11.5-14.5) Immature Granulocyte % (Auto) 0.2 % Immature Granulocyte # (Auto) 0.01 K/uL (0.00-0.02) Prothrombin Time 11.2 SECONDS (9.0-12.0) Prothromb Time International Ratio 1.1 (0.9-1.1) Activated Partial Thromboplast Time 37.8 SECONDS (21.0-31.0) Partial Thromboplastin Ratio 1.5 Anion Gap 6.0 mmol/L (3-11) Est Creatinine Clear Calc Drug Dose 64.0 ml/min Estimated GFR () 85.5 Estimated GFR (Non- 73.8 BUN/Creatinine Ratio 19.2 (10-20) Calcium Level 8.9 mg/dl (8.5-10.1) Magnesium Level 2.4 mg/dl (1.8-2.4) Total Bilirubin 1.0 mg/dl (0.2-1) Direct Bilirubin 0.2 mg/dl (0-0.2) Aspartate Amino Transf (AST/SGOT) 17 U/L (15-37) Alanine Aminotransferase (ALT/SGPT) 13 U/L (12-78) Alkaline Phosphatase 93 U/L (45-117) Troponin I < 0.015 ng/ml (0-0.045) Total Protein 7.4 gm/dl (6.4-8.2) Albumin 3.9 gm/dl (3.4-5.0) Thyroid Stimulating Hormone (TSH) 1.300 uIu/ml (0.300-4.500) Laboratory results per my review. Medications Administered Medications (Trade) Dose Ordered Sig/Brett Route Start Time Stop Time Status Last Admin Dose Admin Levetiracetam (Keppra Tab) 250 mg ONE STAT PO 09/15/17 13:13 09/15/17 13:14 DC 09/15/17 13:34 250 MG ECG Per My Interpretation Indication: altered mental status Rate (beats per minute): 65 Rhythm: normal sinus Findings: no ectopy, other (No acute ST segments. ) Comparison ECG Date: 06/22/2017 Change: no significant change ED Course 1201: The patient was evaluated in room B2. A complete history and physical examination were performed. 1227: The patients as arrived. I spoke with her at bedside. She states that the patient had a 5-6 second long episode of generalized shaking yesterday , followed by 5-10 minutes of confusion and agitation. She states that the patient would become intermittently absent throughout the night as well. The patients states that the patient appears much improved today, but still not back to baseline. The patient is leaving for CT. 1313: Ordered Keppra Tab 250 mg PO. 1320: Upon reevaluation, the patient is resting comfortably. I discussed the results and treatment plan with him. He verbalized agreement of the treatment plan. The patient was discharged home. Medical Decision Differential diagnosis: Etiologies such as metabolic, infection, hypoglycemia, electrolyte abnormalities , cardiac sources, intracerebral event, toxicologic, neurologic, as well as others were entertained. Nursing notes reviewed. The patient is a 62-year-old male who presented to the emergency department for an episode that occurred yesterday. The patient was recently seen in our facility at the beginning of the month and was found to have an intracranial hemorrhage. The patient was transferred to [facility]. He was transferred home to inpatient rehab. Additional history was obtained from the patient's significant other. Apparently the patient had an episode yesterday where he may have had a seizure. She describes a shaking episode which was followed by a questionable postictal phase. At this time the patient appears to be at baseline. His CT shows improvement compared to previous. I discussed patient's laboratory and radiographic studies with him and his significant other. I also discussed his condition with his covering neurology group. The patient was started on antiseizure medication and he will be discharged back for inpatient rehab. He will follow-up with the neurology group for an EEG as well as further testing if needed. He was also encouraged to continue all other medications as prescribed and return to the emergency department immediately if symptoms change worsen or the need arises per Medication Reconcilliation Current Medication List: was personally reviewed by me Blood Pressure Screening Patient's blood pressure: Normal blood pressure Blood pressure disposition: Did not require urgent referral Consults Time Called: 1302 Consulting Physician: Dr. Pederson - Neurology Returned Call: [phone] We discussed the patient's case. Dr. Pederson recommends the patient be started on Keppra 250 mg BID, and follow with neurology for outpatient EEG. Impression Primary Impression: Altered mental status Additional Impression: Seizure Scribe Attestation The scribe's documentation has been prepared under my direction and personally reviewed by me in its entirety. I confirm that the note above accurately reflects all work, treatment, procedures, and medical decision making performed by me. Departure Information Dispostion Home / Self-Care Prescriptions Levetiracetam (Keppra) 250 Mg Tab 250 MG PO BID, #60 TAB Prov: Yaya Coles, DO 09/15/17 Referrals Tom Tripp III, CRNP (PCP) Forms HOME CARE DOCUMENTATION FORM, IMPORTANT VISIT INFORMATION Patient Instructions ED Seizure New Onset Unk Cause, My [facility] Additional Instructions Continue all medications as prescribed. Follow-up with your neurologist for an EEG as soon as possible. Return the emergency department immediately if symptoms change worsening the need arises. Problem Qualifiers
[2017-09-15 14:27] VITALS: BP 105/69; PULSE 69; O2SAT 95
== END 2017-09-15 14:29 | disposition home or self-care (01) ==
LOC: EDBD 11:57 → C.EDB 11:58
DX: R41.82 Altered mental status, unspecified (principal); R56.9 Unspecified convulsions; G20 Parkinson's disease; Z86.73 Personal history of transient ischemic attack (TIA), and cerebral infarction without residual deficits; Z79.899 Other long term (current) drug therapy

== ENCOUNTER → 2017-10-10 | Outpatient (CLI) | payer OTHER ==
[~2017-10-10] MED LIST changes: +AZL/5 PO; +DOCU100C31 PO; -ESCI10TA17 PO; +HEPA1INJ22 SC; +LEVE250T PO; +MELA1TAB49 PO; -MELO7.5T5 PO; -METH500T37 PO; -MULT-506 PO; -RASA1TAB PO
--- NOTE | 2017-10-11 17:34 | EEG Procedure Note ---
EEG Procedure Note Date of Service October 10, 2017. Start / End Times Start Time: 1:53 PM End Time: 2:13 PM Referring Physician Nellie Pederson History This is a 62-year-old male with seizure-like activity. EEG for further evaluation of possible seizure etiology. Home Medication List Scheduled Amantadine Hcl (Amantadine Hcl), 100 MG PO TID Carbidopa-Levodopa (Rytary 48.75-195 mg), 2 CAP PO 6XDAILY Docusate Sodium (Docusate Sodium), 100 MG PO BID Heparin Sodium (Porcine) (Heparin Sodium), 5,000 UNITS SC Q8 Levetiracetam (Keppra), 250 MG PO BID Melatonin (Melatonin), 3 MG PO HS Rasagiline (Azilect), 1 MG PO DAILY Description This is a 21 electrode EEG with a single channel dedicated to limited EKG. The electrodes were placed in accordance with the International 10-20 system. There was significant constant diffuse muscle artifact throughout the recording that sometimes limited the read. At the start of the recording the patient was in an awake state. Background was well organized and composed of symmetric mixed alpha and beta frequencies with mild excess theta frequencies. There was a symmetric well-formed moderate amplitude 7-8 Hz posterior dominant rhythm that was reactive to eye opening and closure. Hyperventilation was not done. Intermittent photic stimulation at various frequencies produced no abnormalities. There is no state changes or sleep transients. Interpretation This is an abnormal routine EEG secondary to mild diffuse background slowing. There was no electrographic seizures or epileptiform discharges. Clinical Correlation This EEG indicates a mild encephalopathy of nonspecific etiology. There was constant diffuse muscle artifact throughout the recording that sometimes limited the read.
== END | disposition home or self-care (01) ==
LOC: C.NEUR 13:43
PROVIDERS: ATTEND Psychiatry & Neurology Neurology
DX: R56.9 Unspecified convulsions (principal)

== ENCOUNTER 2020-05-10 17:40 | Inpatient (IN) ==
--- NOTE | 2020-05-10 18:11 | Emergency Department Note ---
Impression & Plan Slurring of speech, Fatigue, Mass of brain, Liver masses, Abdominal carcinomatosis ED Provider Note Provider: Marcus Arnold MD DATE OF SERVICE:05/10/2020 CHIEF COMPLAINT: Weakness HISTORY OF PRESENT ILLNESS: Patient is a 65-year-old gentleman who lives at home with his with a history of seizures and Parkinson's with some mild associated dementia presenting here today due to worsening weakness over the past approximately 6 to 7 days at home or fatigue and then particularly this aft ernoon around 2:30 PM this afternoon and noted he seemed a bit more weaker on the right side and may be a little bit of right facial droop. Given this and his decline over the week called the ambulance who brought him here for further evaluation. She denies any recent falls or fevers. No significant respiratory symptoms reported that she states he did report some abdominal heartburn sympto ms last night and asked for an antacid. Patient himself is somewhat difficult to get a history from as he at baseline has some slurred speech although she states this worsened over the last several hours. Has not missed any medicines at home no recent medication changes. Was able to have some beef broth earlier without issue. No history of similar acute declines like this things in the past have been much more gradual. No seizure-like activity reported. Patient denies chest pain or headache. States he feels a bit off but unable to elaborate on more. denies sick contacts but states some caregivers to come in to help watch him during the week. REVIEW OF SYSTEMS: Difficult to obtain a full review of systems secondary to his slurred speech and verbal status. PAST MEDICAL HISTORY: As noted above MEDICATIONS: Reviewed home medication list SOCIAL HISTORY: Lives at home with , very distant light smoker as a young man. PHYSICAL EXAM: GENERAL: alert and interactive in no acute distress on stretcher but significant slurred speech Head: normocephalic and atraumatic EYES: No injection, discharge or icterus. PERRL, EOMI. NECK: Trachea midline. Supple. ENT: Mucous membranes pink and moist. LUNGS: Airway patent. No retractions. Breath sounds with some transmitted upper airway sounds and slight heavy breathing at times. HEART: Regular rate and rhythm. No chest wall tenderness ABDOMEN: Soft and non-tender, without guarding or rebound. SKIN: Acyanotic, warm, dry, without rashes EXTREMITIES: Without swelling, tenderness or deformity NEUROLOGICAL: Tongue midline. Some resting tremors appreciated. 4-5 hand clinical education specialist strength bilaterally and 4-5 plantar dorsiflexion bilaterally. Patient minimally able to lift both lower legs off the bed for me. Do not appreciate a significant facial droop at this time. Denies significant disparity in facial or extremity numbness. Patient with fairly severe slurred speech. EK bpm normal sinus rhythm without acute ST segment elevation or depression. Some slight baseline tremor artifact is noted. Normal QRS interval. Normal axis. CONTINUOUS CARDIAC MONITORING: was ordered and showed a heart rate of 86 bpm in normal sinus rhythm Patient's laboratory studies and imaging reviewed. Differential includes Infection, dehydration, metabolic abnormality, hypo/hyperglycemia, electrolyte disturbance, anemia, hypoxia, cardiac sources, intracerebral event, toxicologic, neurologic, as well as other pathologies. IMPRESSION/MEDICAL DECISION MAKING: Patient with worsening weakness and now more sudden worsening weakness and slurred speech over the past 3 hours. Arrives outside the TPA window. On my exam not having a lot of focality to exam but does have some slurred speech slight states worse than normal. No recent trauma reported. Has declined somewhat over the week but again more acutely this afternoon. Sent for CT of the head as well as CT angiogram of the head and neck as well as CT of the pelvis reports some heartburn symptoms he reported last night and earlier today. Patient's blood work without signs of significant anemia and no leukocytosis. No severe electrolyte abnormalities. No signs of acute hepatitis or pancreatitis. Procalcitonin is undetectable less indicative of bacterial infection. TSH within normal is for coronavirus testing was completed and negative. Chest x-ray shows some possible atelectasis questions a right upper lung nodule. CT completed the head shows what appears to be a new 1.6 cm right frontal lobe vasogenic mass with additional lesion in the left occipital lobe that do enhance on the CTA scan without evidence of hydrocephalus or mass-effect. No high-grade stenosis or aneurysm noted. Some adenopathy is noted in the precranial and right supraclavicular region. CT of the abdomen pelvis shows diffuse metastatic disease of the abdomen pelvis including hepatic metastasis and omental and peritoneal carcinomatosis with associated lymphatic metastasis. Questions possible colon mass versus mass lesion. Constipations noted. Discussed with patient and findings. Given the changes with speech and the intracranial findings recommended contacting facility with neurosurgical capabilities. Family requested that we discussed with [facility]. Discussed with the medical team at [facility] who accepted the patient contingent upon an open bed which is not currently available. Discussed with the neurosurgery at [facility] who stated that if the patient had lethargy or concerning signs for increased intracranial pressure would start steroids; but, if just slurred speech would not strongly recommend at this point. Discussed with the patient and possible options of looking at another facility for transfer but they wished defer at this time. Did discuss with hospitalist team possible further observation here pending an open bed sometime tomorrow at [facility]. DIAGNOSIS: Slurred speech, brain masses, liver masses, abdominal carcinomatosis DISPOSITION: Hospitalist will evaluate Patient and are agreeable with this plan at this time. Past Med/Surg History Medical History (Updated 05/10/20 @ 22:32 by Judy Barragan DO) Anxiety Choking Chronic fatigue Constipation, chronic Depression 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 Frequent falls Osteoporosis Other specified hypotension Parkinson disease Seizure-like activity Traumatic brain injury Vitamin D deficiency Surgical History No history of previous surgery Family History Father Myocardial infarction Mother Ovarian cancer Other Family history non-contributory Denies family history of Prostate cancer Breast cancer Colorectal cancer Social History Smoking Status: Never smoker Age Started Using Tobacco: 12; Age Quit Using Tobacco: 28; packs per day: 0.5; Hx Alcohol Use: No Hx Substance Use: No Preferred Language: Trinidadian marital status: Current Living Situation: Spouse current occupational status: retired Feels Safe at Home: Yes Childhood Exposure to Second-Hand Smoke: No Dental Care, Regularly: Yes Physical Activity Frequency: 3-4 Times per Week Seatbelt Use: always Sunscreen Use: No Allergies Allergies Allergy/AdvReac Type Severity Reaction Status Date / Time No Known Allergies Allergy Unverified 05/10/20 19:33 Home Meds Home Medications Medication Instructions Recorded Confirmed multivitamin 1 tab PO DAILY 11/13/18 05/10/20 carbidopa-levodopa [Rytary] 2 cap PO .6XSDAY 05/10/20 05/10/20 levodopa [Inbrija] 84 mg INH .5XSDAY PRN 05/10/20 05/10/20 Previous Rx's Medication Instructions Recorded sodium fluoride 1.1 %-potassium See Rx Instructions .ROUTE 05/27/19 nitrate 5 % dental paste .COMPLEX #100 gram amantadine HCl 137 mg 137 mg PO DAILY #90 cap 07/30/19 capsule,extended release 24 hr levetiracetam 250 mg tablet 250 mg PO BID #180 tab 10/29/19 atorvastatin 20 mg tablet 20 mg PO DAILY #90 tab 01/08/20 sennosides [senna] 8.6 mg PO BID PRN #10 cap 01/11/20 Results & Data (ED) Vital Signs Vital Signs - 24 hr 05/10/20 18:02 05/10/20 18:23 Temperature 37.3 C Temperature Source Oral Pulse Rate 82 Respiratory Rate 20 Blood Pressure 137/75 Blood Pressure Mean 95 Pulse Oximetry 97 97 Oxygen Delivery Method Room Air Room Air Sepsis Recent Fever Within 48 Hours No Sepsis New/Unexplained Change in Mental Status N/A Sepsis Action Taken by Nursing No Action Required Laboratory Data Result diagrams: 05/10/20 17:55 05/10/20 17:55 Lab Results 05/10/20 05/10/20 05/10/20 Range/Units 17:55 17:55 17:55 WBC (4.8-10.8) K/uL RBC (4.7-6.1) M/uL Hgb (14.0-18.0) g/dL Hct (42-52) % MCV (80-100) fL MCH (25-34) pg MCHC (32-36) g/dL RDW Std Deviation (36.4-46.3) fL RDW Coeff of Ynes (11.5-14.5) % Plt Count (130-400) K/uL MPV (7.4-10.4) fL Immature Gran % (Auto) % Neut % (Auto) % Lymph % (Auto) % Burt % (Auto) % Eos % (Auto) % Baso % (Auto) % Neut # (Auto) (1.4-6.5) K/uL Lymph # (Auto) (1.2-3.4) K/uL Burt # (Auto) (0.11-0.59) K/uL Eos # (Auto) (0-0.5) K/uL Baso # (Auto) (0-0.2) K/uL Immature Gran # (Auto) (0.00-0.02) K/uL PT 11.1 (9.0-12.0) Seconds INR 1.1 (0.9-1.1) Sodium 141 (136-145) mmol/L Potassium 4.1 (3.5-5.1) mmol/L Chloride 106 (98-107) mmol/L Carbon Dioxide 28 (21-32) mmol/L Anion Gap 6.0 (3-11) BUN 14 (7-18) mg/dl Creatinine 0.83 (0.6-1.4) mg/dl Est Cr Clr Drug Dosing 92.0 ml/min Est GFR ( Amer) 105.5 Est GFR (Non-Af Amer) 91.0 BUN/Creatinine Ratio 17.2 (10-20) Glucose 90 (70-99) mg/dl Lactate (0.4-2.0) mmol/L Calcium 8.7 (8.5-10.1) mg/dl Magnesium 2.3 (1.8-2.4) mg/dl Total Bilirubin 0.7 (0.2-1) mg/dl AST 26 (15-37) U/L ALT 7 L (12-78) U/L Alkaline Phosphatase 102 (45-117) U/L Troponin I < 0.015 (0-0.045) ng/ml Total Protein 7.1 (6.4-8.2) gm/dl Albumin 3.3 L (3.4-5.0) gm/dl Globulin 3.8 (2.5-4.0) gm/dl Albumin/Globulin Ratio 0.9 (0.9-2) Lipase 57 L (73-393) U/L Procalcitonin < 0.05 (0-0.5) ng/ml TSH 1.190 (0.300-4.500) uIu/ml COVID-19 Eval Order SARS-CoV-2, RNA, NAAT (NEGATIVE) 05/10/20 05/10/20 05/10/20 Range/Units 17:55 18:33 Unknown WBC 6.13 (4.8-10.8) K/uL RBC 4.59 L (4.7-6.1) M/uL Hgb 13.9 L (14.0-18.0) g/dL Hct 40.4 L (42-52) % MCV 88.0 (80-100) fL MCH 30.3 (25-34) pg MCHC 34.4 (32-36) g/dL RDW Std Deviation 42.7 (36.4-46.3) fL RDW Coeff of Ynes 13.2 (11.5-14.5) % Plt Count 388 (130-400) K/uL MPV 10.2 (7.4-10.4) fL Immature Gran % (Auto) 0.2 % Neut % (Auto) 66.0 % Lymph % (Auto) 24.0 % Burt % (Auto) 8.6 % Eos % (Auto) 0.7 % Baso % (Auto) 0.5 % Neut # (Auto) 4.05 (1.4-6.5) K/uL Lymph # (Auto) 1.47 (1.2-3.4) K/uL Burt # (Auto) 0.53 (0.11-0.59) K/uL Eos # (Auto) 0.04 (0-0.5) K/uL Baso # (Auto) 0.03 (0-0.2) K/uL Immature Gran # (Auto) 0.01 (0.00-0.02) K/uL PT (9.0-12.0) Seconds INR (0.9-1.1) Sodium (136-145) mmol/L Potassium (3.5-5.1) mmol/L Chloride (98-107) mmol/L Carbon Dioxide (21-32) mmol/L Anion Gap (3-11) BUN (7-18) mg/dl Creatinine (0.6-1.4) mg/dl Est Cr Clr Drug Dosing ml/min Est GFR ( Amer) Est GFR (Non-Af Amer) BUN/Creatinine Ratio (10-20) Glucose (70-99) mg/dl Lactate 0.8 (0.4-2.0) mmol/L Calcium (8.5-10.1) mg/dl Magnesium (1.8-2.4) mg/dl Total Bilirubin (0.2-1) mg/dl AST (15-37) U/L ALT (12-78) U/L Alkaline Phosphatase (45-117) U/L Troponin I (0-0.045) ng/ml Total Protein (6.4-8.2) gm/dl Albumin (3.4-5.0) gm/dl Globulin (2.5-4.0) gm/dl Albumin/Globulin Ratio (0.9-2) Lipase (73-393) U/L Procalcitonin (0-0.5) ng/ml TSH (0.300-4.500) uIu/ml COVID-19 Eval [facility] SARS-CoV-2, RNA, NAAT (NEGATIVE) 05/10/20 Range/Units Unknown WBC (4.8-10.8) K/uL RBC (4.7-6.1) M/uL Hgb (14.0-18.0) g/dL Hct (42-52) % MCV (80-100) fL MCH (25-34) pg MCHC (32-36) g/dL RDW Std Deviation (36.4-46.3) fL RDW Coeff of Ynes (11.5-14.5) % Plt Count (130-400) K/uL MPV (7.4-10.4) fL Immature Gran % (Auto) % Neut % (Auto) % Lymph % (Auto) % Burt % (Auto) % Eos % (Auto) % Baso % (Auto) % Neut # (Auto) (1.4-6.5) K/uL Lymph # (Auto) (1.2-3.4) K/uL Burt # (Auto) (0.11-0.59) K/uL Eos # (Auto) (0-0.5) K/uL Baso # (Auto) (0-0.2) K/uL Immature Gran # (Auto) (0.00-0.02) K/uL PT (9.0-12.0) Seconds INR (0.9-1.1) Sodium (136-145) mmol/L Potassium (3.5-5.1) mmol/L Chloride (98-107) mmol/L Carbon Dioxide (21-32) mmol/L Anion Gap (3-11) BUN (7-18) mg/dl Creatinine (0.6-1.4) mg/dl Est Cr Clr Drug Dosing ml/min Est GFR ( Amer) Est GFR (Non-Af Amer) BUN/Creatinine Ratio (10-20) Glucose (70-99) mg/dl Lactate (0.4-2.0) mmol/L Calcium (8.5-10.1) mg/dl Magnesium (1.8-2.4) mg/dl Total Bilirubin (0.2-1) mg/dl AST (15-37) U/L ALT (12-78) U/L Alkaline Phosphatase (45-117) U/L Troponin I (0-0.045) ng/ml Total Protein (6.4-8.2) gm/dl Albumin (3.4-5.0) gm/dl Globulin (2.5-4.0) gm/dl Albumin/Globulin Ratio (0.9-2) Lipase (73-393) U/L Procalcitonin (0-0.5) ng/ml TSH (0.300-4.500) uIu/ml COVID-19 Eval Order SARS-CoV-2, RNA, NAAT NEGATIVE (NEGATIVE) Administered Medications Discontinued Medications Dexamethasone (Dexamethasone Sod Inj 10 Mg/Ml Vial) 10 mg IV NOW STA Stop: 05/10/20 22:20 Last Admin: 05/10/20 22:45 Dose: 10 mg Documented by: [id number] Sodium Chloride (Nss) 500 mls @ 999 mls/hr IV .Q31M VÍCTOR Stop: 05/10/20 18:45 Last Infusion: 05/10/20 19:19 Dose: 0 mls/hr Documented by: [id number] Admin: 05/10/20 18:23 Dose: 999 mls/hr Documented by: [id number] Ioversol (Optiray 320 125ml) 111 ml IV ONCE ONE Stop: 05/10/20 19:29 Last Admin: 05/10/20 19:28 Dose: 111 ml Documented by: [id number] Discharge Plan Visit Data Chief Complaint: Stroke/CVA Symptoms ED Provider: Marcus Arnold Discharge Problem: Slurring of speech, Fatigue, Mass of brain, Liver masses, Abdominal carcinomatosis Patient Disposition: Being Evaluated by Hospitalist Forms Stand Alone Forms: My [facility] [email or web address] Prescriptions Prescriptions: No Action sodium fluoride-pot nitrate [PreviDent 5000 Sensitive] 1.1-5 % paste See Rx Instructions .ROUTE .COMPLEX Qty: 100 RF: 11 Gocovri 137 mg capsule,extended release 24hr 137 mg PO DAILY Qty: 90 RF: 3 atorvastatin 20 mg tablet 20 mg PO DAILY Qty: 90 RF: 1 levetiracetam 250 mg tablet 250 mg PO BID Qty: 180 RF: 3 multivitamin [Multiple Vitamins] tablet 1 tab PO DAILY RF: 0 Rytary 48.75-195 mg capsule, extended release 2 cap PO .6XSDAY RF: 0 Inbrija 42 mg capsule 84 mg INH .5XSDAY PRN (Reason: ..) RF: 0 senna 8.6 mg capsule 8.6 mg PO BID PRN (Reason: constipation) Qty: 10 RF: 0 Referrals Referrals: Tom Tripp III, CRNP [Primary Care Provider] -
[2020-05-10 18:15] LABS: Basophils # (auto) 0.03 K/uL (0-0.2); Basophils % (auto) 0.5 %; Eosinophils # (auto) 0.04 K/uL (0-0.5); Eosinophils % (auto) 0.7 %; Hematocrit (blood only) 40.4 % (42-52); Hemoglobin 13.9 g/dL (14.0-18.0); Immature Granulocytes # (auto) 0.01 K/uL (0.00-0.02); Immature Granulocytes % (auto) 0.2 %; Lymphocytes # (auto) 1.47 K/uL (1.2-3.4); Mean Corpuscular Hemoglobin 30.3 pg (25-34); Mean Corpuscular Hgb Conc 34.4 g/dL (32-36); Mean Platelet Volume 10.2 fL (7.4-10.4); Monocytes # (auto) 0.53 K/uL (0.11-0.59); Monocytes % (auto) 8.6 %; Neutrophils # (auto) 4.05 K/uL (1.4-6.5); Platelet Count 388 K/uL (130-400); RDW Coefficient of Variation 13.2 % (11.5-14.5); RDW Standard Deviation 42.7 fL (36.4-46.3); Red Blood Count 4.59 M/uL (4.7-6.1); White Blood Count 6.13 K/uL (4.8-10.8)
[2020-05-10] MEDS ORDERED: SODIUM CHLORIDE 0.9% 500 ML IV SCH (18:15)
[2020-05-10 18:28] LABS: INR 1.1 (0.9-1.1); Prothrombin Time 11.1 Seconds (9.0-12.0)
[2020-05-10 18:36] LABS: Alanine Aminotransferase 7 U/L (12-78); Albumin Level 3.3 gm/dl (3.4-5.0); Aspartate Aminotransferase 26 U/L (15-37); BUN Creatinine Ratio 17.2 (10-20); Blood Urea Nitrogen 14 mg/dl (7-18); Calcium 8.7 mg/dl (8.5-10.1); Carbon Dioxide 28 mmol/L (21-32); Chloride 106 mmol/L (98-107); Est GFR (African American) 105.5; Glucose 90 mg/dl (70-99); Lipase 57 U/L (73-393); Magnesium 2.3 mg/dl (1.8-2.4); Potassium 4.1 mmol/L (3.5-5.1); Sodium 141 mmol/L (136-145)
[2020-05-10 18:47] LABS: Albumin Globulin Ratio 0.9 (0.9-2); Alkaline Phosphatase 102 U/L (45-117); Bilirubin,Total 0.7 mg/dl (0.2-1); Globulin 3.8 gm/dl (2.5-4.0); Total Protein 7.1 gm/dl (6.4-8.2); Troponin I < 0.015 ng/ml (0-0.045)
--- NOTE | 2020-05-10 19:17 | XRay Report ---
XR chest 1V portable HISTORY: 65 years-old Male weakness acute weakness COMPARISON: Acute abdominal series radiographs 01/11/2020, chest radiograph 02/12/2019. TECHNIQUE: Portable AP view of the chest FINDINGS: The patient is mildly rotated. Cardiomediastinal and hilar silhouettes are unchanged. Calcified plaqu e of the thoracic aorta. 1.3 cm nodular opacity projects over the right upper lung. Mild linear subse gmental bibasilar opacities are unchanged. No pneumothorax, large pleural effusion or overt pulmonary edema. Degenerative changes of the shoulders and spine. IMPRESSION: 1. Linear subsegmental bibasilar densities suggest atelectasis. 2. 1.3 cm nodular opacity of the right upper lung. Correlation with a nonemergent follow-up chest CT recommended to further evaluate. ACT 112: Negative or not required by law. The above report was generated using voice recognition software. It may contain grammatical, syntax o r spelling errors. Electronically signed by: Cheikh Amador M.D. 05/10/2020 7:16 PM
[2020-05-10] MEDS ORDERED: OPTIRAY 320 125ml IV ONE (19:28)
--- NOTE | 2020-05-10 19:48 | CT Scan Report ---
CT head/brain wo con CLINICAL HISTORY: 65 years-old Male with weakness. Acute weakness TECHNIQUE: Multiple axial CT images of the head were obtained without contrast. A dose lowering tech nique was utilized adhering to the principles of ALARA. COMPARISON: CTA head and neck of same day, head CT 01/11/2020. FINDINGS: There is a 1.7 x 1.4 cm intra-axial lesion of the superior right frontal lobe which demonstrates mild to moderate surrounding vasogenic edema, image 26 of series 8 which is new from comparison. There is an additional area of decreased attenuation suggestive of vasogenic edema within the left occipital lobe on image 16 series 8 which is also new from comparison. No acute intracranial hemorrhage, midlin e shift, hydrocephalus or abnormal extra-axial collection. No acute territorial infarct. Mild age-rel ated involutional changes. The calvarium is intact. Mild mucoperiosteal thickening of the right maxillary sinus. Unremarkable s oft tissues and orbits. IMPRESSION: 1. Intra-axial lesion of the superior right temporal lobe measuring up to 1.6 cm is noted with mild t o moderate surrounding vasogenic edema. Additionally, there is vasogenic edema of the left occipital lobe suggestive of an additional underlying occult lesion. These findings are new from 01/11/2020 and are suspicious for metastatic disease from unknown primary. 2. No acute intracranial hemorrhage or midline shift. ACT 112: Negative or not required by law. The above report was generated using voice recognition software. It may contain grammatical, syntax o r spelling errors. Electronically signed by: Cheikh Amador M.D. 05/10/2020 7:47 PM
--- NOTE | 2020-05-10 20:05 | CT Scan Report ---
CT angio neck with con, CT angio head w con CLINICAL HISTORY: 65 years-old Male with weakness. Acute weakness COMPARISON STUDY: Head CT of same day and also 01/11/2020 TECHNIQUE: Following the IV administration of 111 mL of Optiray 320, CT angiogram of the head and nec k was performed from the aortic arch to the skull apex. Images are reviewed in the axial, sagittal, a nd coronal planes. 3-D MIPS images are created and assessed. IV contrast was administered without com plication. All measurements were calculated based on NASCET criteria. A dose lowering technique was utilized adhering to the principles of ALARA. CT DOSE: 3832.98 mGy.cm FINDINGS: Three-vessel morphology of the thoracic aortic arch. The imaged opacified pulmonary artery is unremarkable. Patency of the innominate and imaged subclavian arteries. The common carotid arterie s are widely patent. Minimal mixed plaque of the carotid bulbs and proximal internal carotid arteries without significant luminal narrowing. Internal carotid arteries are widely patent. Tortuosity of th e distal cervical segments. The middle and anterior cerebral arteries are patent. Diminutive left A1 segment is likely developmental. Cerebral venous sinuses are patent. Codominant and widely patent vertebral arteries. The basilar and posterior cerebral arteries are delgadillo nt. There is an enhancing 1.6 cm mass of the superior right frontal lobe which appears to be intra-axial demonstrating mild to moderate surrounding vasogenic edema. Similar-appearing enhancing mass of the l eft occipital lobe measures 1.5 cm also with adjacent mild to moderate vasogenic edema. No midline sh ift. Pathologic precarinal lymph node measures 2.6 x 1.6 cm. No pneumothorax. No definite pulmonary nodule of the imaged lung apices. Pathologic right supraclavicular lymph node, 2.6 x 1.8 cm. Multilevel deg enerative changes of the cervical spine. IMPRESSION: 1. Enhancing intra-axial mass of the right frontal and left occipital lobes measuring up to 1.7 cm de monstrating mild to moderate surrounding vasogenic edema without significant mass effect, midline komal ft or acute intracranial hemorrhage. Intracranial metastasis is the diagnosis of exclusion. 2. No aneurysm, dissection, high-grade stenosis or proximal branch occlusion. 3. Pathologic precarinal and right supraclavicular adenopathy suggests bianka metastasis. ACT 112: Negative or not required by law. The above report was generated using voice recognition software. It may contain grammatical, syntax o r spelling errors. Electronically signed by: Cheikh Amador M.D. 05/10/2020 8:03 PM
--- NOTE | 2020-05-10 20:31 | CT Scan Report ---
ABDOMEN AND PELVIS CT WITH IV CONTRAST HISTORY: Acute epigastric abdominal pain with weakness epiagrtic pain, weakness TECHNIQUE: Multiaxial CT images of the abdomen and pelvis were performed following the IV administrat ion of 111 cc of Optiray 320, A dose lowering technique was utilized adhering to the principles of A CASH. COMPARISON STUDY: CT abdomen and pelvis 01/11/2020 FINDINGS: Imaged inferior cardiac chambers are upper limits of normal in size. Trace right pleural ef fusion. Subsegmental bibasilar opacities suggest atelectasis. 5 mm solid pulmonary nodule the basal r ight lower lobe, image 64 series 16 appears new from comparison. Unchanged likely benign fissural nod ules adjacent right middle lobe measure up to 6 mm no pneumatosis or pneumoperitoneum. Indeterminate 6 mm hypodensity of the spleen on image 31 series 15 with indeterminate 5 mm hypodensit y of the anterior superior spleen also noted. Unremarkable pancreas and adrenal glands. Unremarkable gallbladder. Numerous hepatic metastasis are new from comparison measuring up to 2.3 cm. There is a m ass with apparent extracapsular extension involving the posterior right hepatic lobe. There are a few scattered subcentimeter hypodensities of the left kidney which are too small to hoda cterize however measure up to 6 mm suggestive of probable cysts. No hydronephrosis. Mild to moderate urinary bladder wall thickening with partial distention. Prostamegaly. No aortic aneurysm. Fusiform a neurysmal dilation of the celiac artery and right common iliac artery appears unchanged measuring 1.6 and 2.2 cm respectively. Moderate hiatal hernia. No bowel obstruction. Moderate to extensive fecal retention, notably with dis tention of the rectum. Mild rectal wall thickening with perirectal stranding suggestive of stercoral proctitis. Areas of wall thickening with luminal narrowing are noted involving the sigmoid colon, not ably on image 352 series 16 with a soft tissue lesion measuring up to 3.1 cm in length. Normal append ix. Numerous omental and peritoneal soft tissue masses are noted throughout the abdomen and pelvis wh ich extend into the right inguinal and paraumbilical hernias. Lesion of the right inguinal canal nidia ures 3.5 x 2.6 cm. Pathologic node of the right external iliac chain, 2.3 x 1.8 cm. Metastatic peripo rtal adenopathy. Gynecomastia. No acute fracture. Unchanged lucent focus of the posterior left iliac bone. No definite suspicious lytic or blastic osseous lesions.. Remote left-sided rib fractures. IMPRESSION: 1. Diffuse metastatic disease throughout the abdomen and pelvis includes hepatic metastasis with exte nsive omental and peritoneal carcinomatosis with areas of associated lymphatic metastasis. 2. Luminal narrowing with soft tissue mass of the sigmoid colon may reflect the primary lesion. Alter natively, serosal metastatic implants could appear similarly. 3. Trace right pleural effusion with indeterminate 5 mm solid nodule of the basal right lower lobe. 4. Moderate to extensive constipation without bowel obstruction. 5. Moderate hiatal hernia. 6. Additional findings as above. ACT 112: Negative or not required by law. The above report was generated using voice recognition software. It may contain grammatical, syntax o r spelling errors. Electronically signed by: Cheikh Amador M.D. 05/10/2020 8:30 PM
[2020-05-10] MEDS ORDERED: DEXAMETHASONE SOD INJ 10 MG/ML VIAL IV STA (22:19)
--- NOTE | 2020-05-10 22:43 | History & Physical Report ---
Date of Service May 10, 2020 Assessment & Plan (1) Metastatic disease: 65yo C male with history of Parkinson's Disease presenting with one week of progressive fatigue and gait instability and acute onset of slurred speech starting this afternoon. Patient found to have evidence of diffusely metastatic disease - metastasis involving the brain, liver, omentum. Primary source unknown, possibly colon. Family desires transfer to [facility] when a bed becomes available. Patient is DNR/DNI per discussion with . She does not know if they would like to pursue chemotherapy -Admit to medical with telemetry -Check PSA, CA 19-9 and CEA -Consult Oncology - assistance appreciated. -Consult Palliative Care - assistance appreciated -Will give Dexamethasone 10mg IV x 1 -Seizure precautions Present on Admission?: Yes (2) Slurring of speech: Most likely secondary to brain metastases as above. -Dexamethasone -Oncology consultation appreciated Present on Admission?: Yes (3) Parkinson disease: Chronic. Progressive. Patient follows with Dr. Leyva -Continue Amantadine -Continue Carbidopa-Levodopa Present on Admission?: Yes (4) Seizure-like activity: No seizure activity reported -Seizure precautions -Continue Keppra BID Present on Admission?: Yes (5) Hypercholesterolemia: Chronic. Stable -Continue Atorvastatin F/E/N - Heplock. Electrolytes WNL - Ab=051, Regular diet/bitesized with aspiration precautions Ppx - SCDs to bilateral LE Code - DNR/DNI Dispo Admit to medical POC - Ruby () [phone] Present on Admission?: Yes History of Present Illness Chief Complaint: slurred speech Primary Care Provider: Tom Tripp III, ALTAF Hernandez Radha is an unfortunate 65yo male with history of Parkinson's Disease and gait instability presenting with slurred speech. History obtained from at bedside as patient is unable to clearly articulate the events preceding admission. states that patient has had progressive fatigue over the last week as well as worsening rigidity and gait instability. He has been having difficulty ambulating and unable to stand. Today around 14:30 he developed slurred speech which prompted them to come to the ER. Patient has been having some mild abdominal discomfort and intermittent diarrhea over the last month, otherwise denies fever/chills/CP/SOB/palpitations/nausea/vomiting/constipation. He denies ROMAN or visual changes. Denies focal numbness/weakness/tingling. In the ER patient found to be afebrile, HD stable. Imaging revealed enhancing intraaxial mass of the right frontal and left occipital lobes with surrounding vasogenic edema as well as diffuse metastatic disease through the abdomen and pelvis including hepatic metastasis with extensive omental and peritoneal carcinomatosis and lymphatic metastasis as well. Possible primary lesion of the colon reflected by luminal narrowing in the sigmoid. Also 5mm solid nodule of the basal RLL. No midline shift or mass effect appreciated. Per request of , [facility] was contacted for possible transfer. Unfortunately, no beds are available right now. They are agreeable to admission here and consultation with our Oncologist and Palliative Care services as they await transfer to [facility]. ER Course: NSS x 500mL, Dexamethasone 10mg IV Allergies Allergy/AdvReac Type Severity Reaction Status Date / Time No Known Allergies Allergy Unverified 05/10/20 19:33 Home Medications Medication Instructions Recorded Confirmed Type multivitamin 1 tab PO DAILY 11/13/18 05/10/20 History sodium fluoride 1.1 %-potassium See Rx Instructions .ROUTE 05/27/19 05/10/20 Rx nitrate 5 % dental paste .COMPLEX #100 gram amantadine HCl 137 mg 137 mg PO DAILY #90 cap 07/30/19 05/10/20 Rx capsule,extended release 24 hr levetiracetam 250 mg tablet 250 mg PO BID #180 tab 10/29/19 05/10/20 Rx atorvastatin 20 mg tablet 20 mg PO DAILY #90 tab 01/08/20 05/10/20 Rx sennosides [senna] 8.6 mg PO BID PRN #10 cap 01/11/20 05/10/20 Rx carbidopa-levodopa [Rytary] 2 cap PO .6XSDAY 05/10/20 05/10/20 History levodopa [Inbrija] 84 mg INH .5XSDAY PRN 05/10/20 05/10/20 History Past Med/Surg History Medical History (Updated 05/10/20 @ 22:32 by Judy Barragan DO) Anxiety Choking Chronic fatigue Constipation, chronic Depression 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 Frequent falls Osteoporosis Other specified hypotension Parkinson disease Seizure-like activity Traumatic brain injury Vitamin D deficiency Surgical History No history of previous surgery Family History Father Myocardial infarction Mother Ovarian cancer Other Family history non-contributory Denies family history of Prostate cancer Breast cancer Colorectal cancer Social History Smoking Status: Never smoker Age Started Using Tobacco: 12; Age Quit Using Tobacco: 28; packs per day: 0.5; Hx Alcohol Use: No Hx Substance Use: No Preferred Language: Yi marital status: Current Living Situation: Spouse current occupational status: retired Feels Safe at Home: Yes Childhood Exposure to Second-Hand Smoke: No Dental Care, Regularly: Yes Physical Activity Frequency: 3-4 Times per Week Seatbelt Use: always Sunscreen Use: No Review of Systems Review of Systems: All systems reviewed & are unremarkable except as noted in HPI & below Physical Exam Physical Exam: General: patient chronically ill in appearance, awake, speech is quite difficult to understand Skin: warm, dry, intact, no rashes or lesions HEENT: NC/AT, PERRL, EOMI, anicteric sclera, conjunctiva without injection, external ear normal to inspection and nontender, nares patent, moist mucus membranes, dentition intact, no oropharyngeal lesions, neck supple, trachea midline, no LAD, no thyromegaly, no JVD Heart: +S1/S2, regular, no m/r/g Lungs: equal air entry bilaterally, no rales/rhonchi/wheezes Abd: +BS, soft, ,mildly tender with deep palpation with no rebound/guar ding/peritonitis, no masses/organomegaly/ascites Ext: warm, 2+ pulses in UE/LE bilaterally, no clubbing/cyanosis or edema Neuro: flexion contractions and muscular rigidity, speech is garbled and dif ficult to understand, MS 5/5 in UE/LE bilaterally Results & Data Results & Data ([facility]) Vital Signs (Past 12 Hours) Vital Signs Temp Pulse Resp BP Pulse Ox 05/10/20 18:23 97 05/10/20 18:02 37.3 C 82 20 137/75 97 Laboratory Results Lab Results 05/10/20 05/10/20 05/10/20 Range/Units 17:55 17:55 17:55 WBC (4.8-10.8) K/uL RBC (4.7-6.1) M/uL Hgb (14.0-18.0) g/dL Hct (42-52) % MCV (80-100) fL MCH (25-34) pg MCHC (32-36) g/dL RDW Std Deviation (36.4-46.3) fL RDW Coeff of Ynes (11.5-14.5) % Plt Count (130-400) K/uL MPV (7.4-10.4) fL Immature Gran % (Auto) % Neut % (Auto) % Lymph % (Auto) % [place] % (Auto) % Eos % (Auto) % Baso % (Auto) % Neut # (Auto) (1.4-6.5) K/uL Lymph # (Auto) (1.2-3.4) K/uL [place] # (Auto) (0.11-0.59) K/uL Eos # (Auto) (0-0.5) K/uL Baso # (Auto) (0-0.2) K/uL Immature Gran # (Auto) (0.00-0.02) K/uL PT 11.1 (9.0-12.0) Seconds INR 1.1 (0.9-1.1) Sodium 141 (136-145) mmol/L Potassium 4.1 (3.5-5.1) mmol/L Chloride 106 (98-107) mmol/L Carbon Dioxide 28 (21-32) mmol/L Anion Gap 6.0 (3-11) BUN 14 (7-18) mg/dl Creatinine 0.83 (0.6-1.4) mg/dl Est Cr Clr Drug Dosing 92.0 ml/min Est GFR ( Amer) 105.5 Est GFR (Non-Af Amer) 91.0 BUN/Creatinine Ratio 17.2 (10-20) Glucose 90 (70-99) mg/dl Lactate (0.4-2.0) mmol/L Calcium 8.7 (8.5-10.1) mg/dl Magnesium 2.3 (1.8-2.4) mg/dl Total Bilirubin 0.7 (0.2-1) mg/dl AST 26 (15-37) U/L ALT 7 L (12-78) U/L Alkaline Phosphatase 102 (45-117) U/L Troponin I < 0.015 (0-0.045) ng/ml Total Protein 7.1 (6.4-8.2) gm/dl Albumin 3.3 L (3.4-5.0) gm/dl Globulin 3.8 (2.5-4.0) gm/dl Albumin/Globulin Ratio 0.9 (0.9-2) Lipase 57 L (73-393) U/L Procalcitonin < 0.05 (0-0.5) ng/ml TSH 1.190 (0.300-4.500) uIu/ml COVID-19 Eval Order SARS-CoV-2, RNA, NAAT (NEGATIVE) 05/10/20 05/10/20 05/10/20 Range/Units 17:55 18:33 Unknown WBC 6.13 (4.8-10.8) K/uL RBC 4.59 L (4.7-6.1) M/uL Hgb 13.9 L (14.0-18.0) g/dL Hct 40.4 L (42-52) % MCV 88.0 (80-100) fL MCH 30.3 (25-34) pg MCHC 34.4 (32-36) g/dL RDW Std Deviation 42.7 (36.4-46.3) fL RDW Coeff of Ynes 13.2 (11.5-14.5) % Plt Count 388 (130-400) K/uL MPV 10.2 (7.4-10.4) fL Immature Gran % (Auto) 0.2 % Neut % (Auto) 66.0 % Lymph % (Auto) 24.0 % [place] % (Auto) 8.6 % Eos % (Auto) 0.7 % Baso % (Auto) 0.5 % Neut # (Auto) 4.05 (1.4-6.5) K/uL Lymph # (Auto) 1.47 (1.2-3.4) K/uL [place] # (Auto) 0.53 (0.11-0.59) K/uL Eos # (Auto) 0.04 (0-0.5) K/uL Baso # (Auto) 0.03 (0-0.2) K/uL Immature Gran # (Auto) 0.01 (0.00-0.02) K/uL PT (9.0-12.0) Seconds INR (0.9-1.1) Sodium (136-145) mmol/L Potassium (3.5-5.1) mmol/L Chloride (98-107) mmol/L Carbon Dioxide (21-32) mmol/L Anion Gap (3-11) BUN (7-18) mg/dl Creatinine (0.6-1.4) mg/dl Est Cr Clr Drug Dosing ml/min Est GFR ( Amer) Est GFR (Non-Af Amer) BUN/Creatinine Ratio (10-20) Glucose (70-99) mg/dl Lactate 0.8 (0.4-2.0) mmol/L Calcium (8.5-10.1) mg/dl Magnesium (1.8-2.4) mg/dl Total Bilirubin (0.2-1) mg/dl AST (15-37) U/L ALT (12-78) U/L Alkaline Phosphatase (45-117) U/L Troponin I (0-0.045) ng/ml Total Protein (6.4-8.2) gm/dl Albumin (3.4-5.0) gm/dl Globulin (2.5-4.0) gm/dl Albumin/Globulin Ratio (0.9-2) Lipase (73-393) U/L Procalcitonin (0-0.5) ng/ml TSH (0.300-4.500) uIu/ml COVID-19 Eval [facility] SARS-CoV-2, RNA, NAAT (NEGATIVE) 05/10/20 Range/Units Unknown WBC (4.8-10.8) K/uL RBC (4.7-6.1) M/uL Hgb (14.0-18.0) g/dL Hct (42-52) % MCV (80-100) fL MCH (25-34) pg MCHC (32-36) g/dL RDW Std Deviation (36.4-46.3) fL RDW Coeff of Ynes (11.5-14.5) % Plt Count (130-400) K/uL MPV (7.4-10.4) fL Immature Gran % (Auto) % Neut % (Auto) % Lymph % (Auto) % [place] % (Auto) % Eos % (Auto) % Baso % (Auto) % Neut # (Auto) (1.4-6.5) K/uL Lymph # (Auto) (1.2-3.4) K/uL [place] # (Auto) (0.11-0.59) K/uL Eos # (Auto) (0-0.5) K/uL Baso # (Auto) (0-0.2) K/uL Immature Gran # (Auto) (0.00-0.02) K/uL PT (9.0-12.0) Seconds INR (0.9-1.1) Sodium (136-145) mmol/L Potassium (3.5-5.1) mmol/L Chloride (98-107) mmol/L Carbon Dioxide (21-32) mmol/L Anion Gap (3-11) BUN (7-18) mg/dl Creatinine (0.6-1.4) mg/dl Est Cr Clr Drug Dosing ml/min Est GFR ( Amer) Est GFR (Non-Af Amer) BUN/Creatinine Ratio (10-20) Glucose (70-99) mg/dl Lactate (0.4-2.0) mmol/L Calcium (8.5-10.1) mg/dl Magnesium (1.8-2.4) mg/dl Total Bilirubin (0.2-1) mg/dl AST (15-37) U/L ALT (12-78) U/L Alkaline Phosphatase (45-117) U/L Troponin I (0-0.045) ng/ml Total Protein (6.4-8.2) gm/dl Albumin (3.4-5.0) gm/dl Globulin (2.5-4.0) gm/dl Albumin/Globulin Ratio (0.9-2) Lipase (73-393) U/L Procalcitonin (0-0.5) ng/ml TSH (0.300-4.500) uIu/ml COVID-19 Eval Order SARS-CoV-2, RNA, NAAT NEGATIVE (NEGATIVE) Diagnostic Findings CT angio neck with con, CT angio head w con CLINICAL HISTORY: 65 years-old Male with weakness. Acute weakness COMPARISON STUDY: Head CT of same day and also 01/11/2020 TECHNIQUE: Following the IV administration of 111 mL of Optiray 320, CT angiogram of the head and neck was performed from the aortic arch to the skull apex. Images are reviewed in the axial, sagittal, and coronal planes. 3-D MIPS images are created and assessed. IV contrast was administered without complication. All measurements were calculated based on NASCET criteria. A dose lowering technique was utilized adhering to the principles of ALARA. CT DOSE: 3832.98 mGy.cm FINDINGS: Three-vessel morphology of the thoracic aortic arch. The imaged opacified pulmonary artery is unremarkable. Patency of the innominate and imaged subclavian arteries. The common carotid arteries are widely patent. Minimal mixed plaque of the carotid bulbs and proximal internal carotid arteries without significant luminal narrowing. Internal carotid arteries are widely patent. Tortuosity of the distal cervical segments. The middle and anterior cerebral arteries are patent. Diminutive left A1 segment is likely developmental. Cerebral venous sinuses are patent. Codominant and widely patent vertebral arteries. The basilar and posterior cerebral arteries are patent. There is an enhancing 1.6 cm mass of the superior right frontal lobe which appears to be intra-axial demonstrating mild to moderate surrounding vasogenic edema. Similar-appearing enhancing mass of the left occipital lobe measures 1.5 cm also with adjacent mild to moderate vasogenic edema. No midline shift. Pathologic precarinal lymph node measures 2.6 x 1.6 cm. No pneumothorax. No definite pulmonary nodule of the imaged lung apices. Pathologic right supraclavicular lymph node, 2.6 x 1.8 cm. Multilevel degenerative changes of the cervical spine. IMPRESSION: 1. Enhancing intra-axial mass of the right frontal and left occipital lobes measuring up to 1.7 cm demonstrating mild to moderate surrounding vasogenic edema without significant mass effect, midline shift or acute intracranial hemorrhage. Intracranial metastasis is the diagnosis of exclusion. 2. No aneurysm, dissection, high-grade stenosis or proximal branch occlusion. 3. Pathologic precarinal and right supraclavicular adenopathy suggests bianka metastasis. ACT 112: Negative or not required by law. The above report was generated using voice recognition software. It may contain grammatical, syntax or spelling errors. Electronically signed by: Cheikh Amador M.D. 05/10/2020 8:03 PM Dictated: 05/10/201949Transcribed: 05/10/201949 CT angio neck with con, CT angio head w con CLINICAL HISTORY: 65 years-old Male with weakness. Acute weakness COMPARISON STUDY: Head CT of same day and also 01/11/2020 TECHNIQUE: Following the IV administration of 111 mL of Optiray 320, CT angiogram of the head and neck was performed from the aortic arch to the skull apex. Images are reviewed in the axial, sagittal, and coronal planes. 3-D MIPS images are created and assessed. IV contrast was administered without complication. All measurements were calculated based on NASCET criteria. A dose lowering technique was utilized adhering to the principles of ALARA. CT DOSE: 3832.98 mGy.cm FINDINGS: Three-vessel morphology of the thoracic aortic arch. The imaged opacified pulmonary artery is unremarkable. Patency of the innominate and imaged subclavian arteries. The common carotid arteries are widely patent. Minimal mixed plaque of the carotid bulbs and proximal internal carotid arteries without significant luminal narrowing. Internal carotid arteries are widely patent. Tortuosity of the distal cervical segments. The middle and anterior cerebral arteries are patent. Diminutive left A1 segment is likely developmental. Cerebral venous sinuses are patent. Codominant and widely patent vertebral arteries. The basilar and posterior cerebral arteries are patent. There is an enhancing 1.6 cm mass of the superior right frontal lobe which appears to be intra-axial demonstrating mild to moderate surrounding vasogenic edema. Similar-appearing enhancing mass of the left occipital lobe measures 1.5 cm also with adjacent mild to moderate vasogenic edema. No midline shift. Pathologic precarinal lymph node measures 2.6 x 1.6 cm. No pneumothorax. No definite pulmonary nodule of the imaged lung apices. Pathologic right supraclavicular lymph node, 2.6 x 1.8 cm. Multilevel degenerative changes of the cervical spine. IMPRESSION: 1. Enhancing intra-axial mass of the right frontal and left occipital lobes measuring up to 1.7 cm demonstrating mild to moderate surrounding vasogenic edema without significant mass effect, midline shift or acute intracranial hemorrhage. Intracranial metastasis is the diagnosis of exclusion. 2. No aneurysm, dissection, high-grade stenosis or proximal branch occlusion. 3. Pathologic precarinal and right supraclavicular adenopathy suggests bianka metastasis. ACT 112: Negative or not required by law. The above report was generated using voice recognition software. It may contain grammatical, syntax or spelling errors. Electronically signed by: Cheikh Amador M.D. 05/10/2020 8:03 PM Dictated: 05/10/201949Transcribed: 05/10/[address] WITH IV CONTRAST HISTORY: Acute epigastric abdominal pain with weakness epiagrtic pain, weakness TECHNIQUE: Multiaxial CT images of the abdomen and pelvis were performed following the IV administration of 111 cc of Optiray 320, A dose lowering technique was utilized adhering to the principles of ALARA. COMPARISON STUDY: CT abdomen and pelvis 01/11/2020 FINDINGS: Imaged inferior cardiac chambers are upper limits of normal in size. Trace right pleural effusion. Subsegmental bibasilar opacities suggest atelectasis. 5 mm solid pulmonary nodule the basal right lower lobe, image 64 series 16 appears new from comparison. Unchanged likely benign fissural nodules adjacent right middle lobe measure up to 6 mm no pneumatosis or pneumoperitoneum. Indeterminate 6 mm hypodensity of the spleen on image 31 series 15 with indeterminate 5 mm hypodensity of the anterior superior spleen also noted. Unremarkable pancreas and adrenal glands. Unremarkable gallbladder. Numerous hepatic metastasis are new from comparison measuring up to 2.3 cm. There is a mass with apparent extracapsular extension involving the posterior right hepatic lobe. There are a few scattered subcentimeter hypodensities of the left kidney which are too small to characterize however measure up to 6 mm suggestive of probable cysts. No hydronephrosis. Mild to moderate urinary bladder wall thickening with partial distention. Prostamegaly. No aortic aneurysm. 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 Moderate hiatal hernia. No bowel obstruction. Moderate to extensive fecal retention, notably with distention of the rectum. Mild rectal wall thickening with perirectal stranding suggestive of stercoral proctitis. Areas of wall thickening with luminal narrowing are noted involving the sigmoid colon, notably on image 352 series 16 with a soft tissue lesion measuring up to 3.1 cm in length. Normal appendix. Numerous omental and peritoneal soft tissue masses are noted throughout the abdomen and pelvis which extend into the right inguinal and paraumbilical hernias. Lesion of the right inguinal canal measures 3.5 x 2.6 cm. Pathologic node of the right external iliac chain, 2.3 x 1.8 cm. Metastatic periportal adenopathy. Gynecomastia. No acute fracture. Unchanged lucent focus of the posterior left iliac bone. No definite suspicious lytic or blastic osseous lesions.. Remote left-sided rib fractures. IMPRESSION: 1. Diffuse metastatic disease throughout the abdomen and pelvis includes hepatic metastasis with extensive omental and peritoneal carcinomatosis with areas of associated lymphatic metastasis. 2. Luminal narrowing with soft tissue mass of the sigmoid colon may reflect the primary lesion. Alternatively, serosal metastatic implants could appear similarly. 3. Trace right pleural effusion with indeterminate 5 mm solid nodule of the basal right lower lobe. 4. Moderate to extensive constipation without bowel obstruction. 5. Moderate hiatal hernia. 6. Additional findings as above. ACT 112: Negative or not required by law. The above report was generated using voice recognition software. It may contain grammatical, syntax or spelling errors. Electronically signed by: Cheikh Amador M.D. 05/10/2020 8:30 PM Dictated: 05/10/202003Transcribed: 12/20/20 2004 XR chest 1V portable HISTORY: 65 years-old Male weakness acute weakness COMPARISON: Acute abdominal series radiographs 01/11/2020, chest radiograph 02/12/2019. TECHNIQUE: Portable AP view of the chest FINDINGS: The patient is mildly rotated. Cardiomediastinal and hilar silhouettes are unchanged. Calcified plaque of the thoracic aorta. 1.3 cm nodular opacity projects over the right upper lung. Mild linear subsegmental bibasilar opacities are unchanged. No pneumothorax, large pleural effusion or overt pulmonary edema. Degenerative changes of the shoulders and spine. IMPRESSION: 1. Linear subsegmental bibasilar densities suggest atelectasis. 2. 1.3 cm nodular opacity of the right upper lung. Correlation with a nonemergent follow-up chest CT recommended to further evaluate. ACT 112: Negative or not required by law. The above report was generated using voice recognition software. It may contain grammatical, syntax or spelling errors. Electronically signed by: Cheikh Amador M.D. 05/10/2020 7:16 PM Dictated: 05/10/201912Transcribed: 05/10/201912 ADDENDUM Speech dictation error was in the IMPRESSION #1. The sentence should read "intra-axial lesion of the superior right FRONTAL lobe.." Electronically signed by: Cheikh Amador M.D. 05/10/2020 8:[address] head/brain wo con CLINICAL HISTORY: 65 years-old Male with weakness. Acute weakness TECHNIQUE: Multiple axial CT images of the head were obtained without contrast. A dose lowering technique was utilized adhering to the principles of ALARA. COMPARISON: CTA head and neck of same day, head CT 01/11/2020. FINDINGS: There is a 1.7 x 1.4 cm intra-axial lesion of the superior right frontal lobe which demonstrates mild to moderate surrounding vasogenic edema, image 26 of series 8 which is new from comparison. There is an additional area of decreased attenuation suggestive of vasogenic edema within the left occipital lobe on image 16 series 8 which is also new from comparison. No acute intracranial hemorrhage, midline shift, hydrocephalus or abnormal extra-axial collection. No acute territorial infarct. Mild age-related involutional changes. The calvarium is intact. Mild mucoperiosteal thickening of the right maxillary sinus. Unremarkable soft tissues and orbits. IMPRESSION: 1. Intra-axial lesion of the superior right temporal lobe measuring up to 1.6 cm is noted with mild to moderate surrounding vasogenic edema. Additionally, there is vasogenic edema of the left occipital lobe suggestive of an additional underlying occult lesion. These findings are new from 01/11/2020 and are suspicious for metastatic disease from unknown primary. 2. No acute intracranial hemorrhage or midline shift. ACT 112: Negative or not required by law. The above report was generated using voice recognition software. It may contain grammatical, syntax or spelling errors. Electronically signed by: Cheikh Amador M.D. 05/10/2020 7:47 PM Dictated: 05/10/201941Transcribed: 05/10/201941 Code Status & VTE Plan VTE Prophylaxis Plan VTE Prophylaxis will be ordered: Yes PG Care Time/CCT Total # of Minutes Spent Total Time Spent with Patient: Total time spent is greater than 50% in coordination of care (as documented) at patient's floor/unit and/or counseling patient: Coding Level of Care Code 35694 Initial Inpt Care Lvl 3 Diagnoses Metastatic disease C79.9 Area of secondary neoplastic involvement: unspecified site Slurring of speech R47.81 Parkinson disease G20 Seizure-like activity R56.9 Hypercholesterolemia E78.00 (1) Metastatic disease Area of secondary neoplastic involvement: unspecified site Qualified Code(s): C79.9 - Secondary malignant neoplasm of unspecified site
[2020-05-11] MEDS ORDERED: LEVODOPA 42 MG INH PRN (00:34)
[2020-05-11] MEDS ORDERED: ONDANSETRON INJ 2 MG/ML 2 ML VIAL IV PRN (00:34)
[2020-05-11] MEDS ORDERED: ACETAMINOPHEN 325 MG TAB PO PRN (00:34)
[2020-05-11] MEDS ORDERED: DOCUSATE SODIUM 100 MG CAP PO PRN (00:34)
[2020-05-11] MEDS ORDERED: POLYETHYLENE (MIRALAX) 17 GM PACK PO PRN (00:34)
[2020-05-11] MEDS: RYTARY~NON-FORMULARY PATIENT'S OWN MED EXT SCH ×6 (06:32→21:37)
[2020-05-11 06:46] LABS: Hematocrit (blood only) 40.1 % (42-52); Hemoglobin 13.7 g/dL (14.0-18.0); Lymphocytes # (auto) 0.65 K/uL (1.2-3.4); Lymphocytes % (auto) 14.9 %; Mean Corpuscular Hemoglobin 29.8 pg (25-34); Mean Corpuscular Hgb Conc 34.2 g/dL (32-36); Mean Corpuscular Volume 87.4 fL (80-100); Mean Platelet Volume 9.8 fL (7.4-10.4); Monocytes # (auto) 0.02 K/uL (0.11-0.59); Monocytes % (auto) 0.5 %; Neutrophils # (auto) 3.68 K/uL (1.4-6.5); Neutrophils % (auto) 84.6 %; Platelet Count 339 K/uL (130-400); RDW Coefficient of Variation 13.1 % (11.5-14.5); RDW Standard Deviation 42.1 fL (36.4-46.3); Red Blood Count 4.59 M/uL (4.7-6.1); White Blood Count 4.35 K/uL (4.8-10.8)
[2020-05-11 07:07] LABS: BUN Creatinine Ratio 18.7 (10-20); Calcium 8.4 mg/dl (8.5-10.1); Creatinine Clr Calc Pharmacy 104.5 ml/min; Est GFR (African American) 111.9; Est GFR (Non-African American) 96.5; Potassium 3.9 mmol/L (3.5-5.1)
[2020-05-11 07:12] LABS: Prostate Specific Antigen 0.492 ng/ml (0-4)
[2020-05-11] MEDS ORDERED: AMANTADINE HCL 137 MG PO SCH (09:00)
[2020-05-11] MEDS ORDERED: [UNRECOGNIZED DRUG - OTHER] PO SCH (09:00)
[2020-05-11] MEDS: levETIRAcetam 250 MG TAB PO SCH ×2 (09:18→21:38)
[2020-05-11] MEDS: ATORVASTATIN 20 MG TAB PO SCH (09:18)
--- NOTE | 2020-05-11 12:04 | Electrocardiogram Report ---
Test Reason : Blood Pressure : / mmHG Vent. Rate : 083 BPM Atrial Rate : 083 BPM P-R Int : 104 ms QRS Dur : 084 ms QT Int : 380 ms P-R-T Axes : 004 -04 018 degrees QTc Int : 446 ms Poor data quality, interpretation may be adversely affected Sinus rhythm with short IL Possible Left atrial enlargement Left ventricular hypertrophy Abnormal ECG When compared with ECG of 11-JAN-2020 17:53, No significant change was found Confirmed by Ward Dunne ([id number]) on 05/11/2020 12:04:29 PM Referred By: REFERRED SELF Confirmed By:Ward Dunne
--- NOTE | 2020-05-11 14:05 | Consultation ---
Date of Consultation May 11, 2020 Assessment & Plan (1) Metastatic disease: 65 y/o male with history of Parkinson's Disease who presents with widely metastatic disease involving brain, chest, liver, lymph nodes and peritoneal cavity. Primary lesion is unknown. May need a tissue biopsy for diagnostic confirmation and tissue of origin. Will check tumor markers including PSA, CEA, AFP, CA19-9, LDH. Family desires transfer to [facility] when a bed becomes available. Patient is DNR/DNI. Overall, poor prognosis given the tumor burden, comorbidities and poor performance status. Concur with palliative care consult. Thank you for the courtesy of this consultation. Feel free to contact if any questions. Present on Admission?: Yes (2) Mass of brain: Continue Dexamethasone for vasogenic edema and Keppra for seizure prophylaxis. May benefit from palliative radiation. DVT prophylaxis as per primary team. History of Present Illness Reason for Consultation: Metastatic disease Attending Physician: Dave Webber DO History of Present Illness 65 y/o male with history of Parkinson's Disease and gait instability who presented with slurred speech. Patient is unable to provide history. H&P was reviewed from the admission. states that patient has had progressive fatigue over the last week as well as worsening rigidity and gait instability. He has been having difficulty ambulating and unable to stand. Patient has been having some mild abdominal discomfort and intermittent diarrhea over the last month, otherwise denies fever, chills, CP, SOB, palpitations, nausea, vomiting, constipation. He denies ROMAN. Denies focal numbness/weakness/tingling. Upon arrival to ED, imaging studies revealed enhancing intraaxial mass of the right frontal and left occipital lobes with surrounding vasogenic edema as well as diffuse metastatic disease through the abdomen and pelvis including hepatic metastasis with extensive omental and peritoneal carcinomatosis and lymphatic metastasis as well. Possible primary lesion of the colon reflected by luminal narrowing in the sigmoid. Also 5mm solid nodule of the basal RLL. Patient is awaiting a transfer to [facility] as per 's request. Patient was seen and examined at bedside. Lab data and imaging studies were reviewed. Allergies Allergy/AdvReac Type Severity Reaction Status Date / Time No Known Allergies Allergy Unverified 05/10/20 19:33 Home Medications Medication Instructions Recorded Confirmed Type multivitamin 1 tab PO DAILY 11/13/18 05/10/20 History sodium fluoride 1.1 %-potassium See Rx Instructions .ROUTE 05/27/19 05/10/20 Rx nitrate 5 % dental paste .COMPLEX #100 gram amantadine HCl 137 mg 137 mg PO DAILY #90 cap 07/30/19 05/10/20 Rx capsule,extended release 24 hr levetiracetam 250 mg tablet 250 mg PO BID #180 tab 10/29/19 05/10/20 Rx atorvastatin 20 mg tablet 20 mg PO DAILY #90 tab 01/08/20 05/10/20 Rx sennosides [senna] 8.6 mg PO BID PRN #10 cap 01/11/20 05/10/20 Rx carbidopa-levodopa [Rytary] 2 cap PO .6XSDAY 05/10/20 05/10/20 History levodopa [Inbrija] 84 mg INH .5XSDAY PRN 05/10/20 05/10/20 History Patient History Medical History (Updated 05/10/20 @ 22:32 by Judy Barragan DO) Anxiety Choking Chronic fatigue Constipation, chronic Depression 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 Frequent falls Osteoporosis Other specified hypotension Parkinson disease Seizure-like activity Traumatic brain injury Vitamin D deficiency Surgical History No history of previous surgery Family History Father Myocardial infarction Mother Ovarian cancer Other Family history non-contributory Denies family history of Prostate cancer Breast cancer Colorectal cancer Social History Smoking Status: Never smoker Age Started Using Tobacco: 12; Age Quit Using Tobacco: 28; packs per day: 0.5; Hx Alcohol Use: No Hx Substance Use: No Preferred Language: Persian Communication Ability: Effective Chief Business Officer Required: No Beliefs That Will Affect Care: None marital status: Current Living Situation: Spouse current occupational status: retired Feels Safe at Home: Yes Childhood Exposure to Second-Hand Smoke: No Dental Care, Regularly: Yes Physical Activity Frequency: 3-4 Times per Week Seatbelt Use: always Sunscreen Use: No Assistive Devices: None Review of Systems Review of Systems: Unobtainable due to mental health condition Physical Exam Physical Exam: Constitutional: Vitals are stable Eyes: Eyes are without conjunctival erythema or icterus. ENT: External examination was negative for masses. Neck: Negative for masses or palpable thyromegaly. Respiratory: Lung sounds were generally clear bilaterally. Cardiovascular: Heart was RRR without significant murmur, gallops or rubs. Gastrointestinal: The abdomen was soft with normal bowel sounds. Lymphatic system: There was no palpable peripheral lymphadenopathy. Musculoskeletal System: The musculoskeletal system seemed concordant with age. Skin: The skin was negative for jaundice. Neurologic Exam: The exam is consisitent with Parkinsin's disease Extremities: Negative for edema or erythema Results & Data ([facility]) Vital Signs (Past 12 Hours) Vital Signs Temp Pulse Pulse Resp BP Pulse Ox 05/11/20 11:44 37.1 C 86 18 103/67 90 05/11/20 07:47 78 05/11/20 07:18 36.5 C 84 18 128/81 92 05/11/20 04:00 36.8 C 85 18 128/80 93 Laboratory Results Lab Results 05/10/20 05/10/20 05/10/20 Range/Units 17:55 17:55 17:55 WBC (4.8-10.8) K/uL RBC (4.7-6.1) M/uL Hgb (14.0-18.0) g/dL Hct (42-52) % MCV (80-100) fL MCH (25-34) pg MCHC (32-36) g/dL RDW Std Deviation (36.4-46.3) fL RDW Coeff of Ynes (11.5-14.5) % Plt Count (130-400) K/uL MPV (7.4-10.4) fL Immature Gran % (Auto) % Neut % (Auto) % Lymph % (Auto) % [place] % (Auto) % Eos % (Auto) % Baso % (Auto) % Neut # (Auto) (1.4-6.5) K/uL Lymph # (Auto) (1.2-3.4) K/uL [place] # (Auto) (0.11-0.59) K/uL Eos # (Auto) (0-0.5) K/uL Baso # (Auto) (0-0.2) K/uL Immature Gran # (Auto) (0.00-0.02) K/uL PT 11.1 (9.0-12.0) Seconds INR 1.1 (0.9-1.1) Sodium 141 (136-145) mmol/L Potassium 4.1 (3.5-5.1) mmol/L Chloride 106 (98-107) mmol/L Carbon Dioxide 28 (21-32) mmol/L Anion Gap 6.0 (3-11) BUN 14 (7-18) mg/dl Creatinine 0.83 (0.6-1.4) mg/dl Est Cr Clr Drug Dosing 92.0 ml/min Est GFR ( Amer) 105.5 Est GFR (Non-Af Amer) 91.0 BUN/Creatinine Ratio 17.2 (10-20) Glucose 90 (70-99) mg/dl Lactate (0.4-2.0) mmol/L Calcium 8.7 (8.5-10.1) mg/dl Magnesium 2.3 (1.8-2.4) mg/dl Total Bilirubin 0.7 (0.2-1) mg/dl AST 26 (15-37) U/L ALT 7 L (12-78) U/L Alkaline Phosphatase 102 (45-117) U/L Troponin I < 0.015 (0-0.045) ng/ml Total Protein 7.1 (6.4-8.2) gm/dl Albumin 3.3 L (3.4-5.0) gm/dl Globulin 3.8 (2.5-4.0) gm/dl Albumin/Globulin Ratio 0.9 (0.9-2) Lipase 57 L (73-393) U/L Procalcitonin < 0.05 (0-0.5) ng/ml TSH 1.190 (0.300-4.500) uIu/ml COVID-19 Eval Order SARS-CoV-2, RNA, NAAT (NEGATIVE) 05/10/20 05/10/20 05/10/20 Range/Units 17:55 18:33 Unknown WBC 6.13 (4.8-10.8) K/uL RBC 4.59 L (4.7-6.1) M/uL Hgb 13.9 L (14.0-18.0) g/dL Hct 40.4 L (42-52) % MCV 88.0 (80-100) fL MCH 30.3 (25-34) pg MCHC 34.4 (32-36) g/dL RDW Std Deviation 42.7 (36.4-46.3) fL RDW Coeff of Ynes 13.2 (11.5-14.5) % Plt Count 388 (130-400) K/uL MPV 10.2 (7.4-10.4) fL Immature Gran % (Auto) 0.2 % Neut % (Auto) 66.0 % Lymph % (Auto) 24.0 % [place] % (Auto) 8.6 % Eos % (Auto) 0.7 % Baso % (Auto) 0.5 % Neut # (Auto) 4.05 (1.4-6.5) K/uL Lymph # (Auto) 1.47 (1.2-3.4) K/uL [place] # (Auto) 0.53 (0.11-0.59) K/uL Eos # (Auto) 0.04 (0-0.5) K/uL Baso # (Auto) 0.03 (0-0.2) K/uL Immature Gran # (Auto) 0.01 (0.00-0.02) K/uL PT (9.0-12.0) Seconds INR (0.9-1.1) Sodium (136-145) mmol/L Potassium (3.5-5.1) mmol/L Chloride (98-107) mmol/L Carbon Dioxide (21-32) mmol/L Anion Gap (3-11) BUN (7-18) mg/dl Creatinine (0.6-1.4) mg/dl Est Cr Clr Drug Dosing ml/min Est GFR ( Amer) Est GFR (Non-Af Amer) BUN/Creatinine Ratio (10-20) Glucose (70-99) mg/dl Lactate 0.8 (0.4-2.0) mmol/L Calcium (8.5-10.1) mg/dl Magnesium (1.8-2.4) mg/dl Total Bilirubin (0.2-1) mg/dl AST (15-37) U/L ALT (12-78) U/L Alkaline Phosphatase (45-117) U/L Troponin I (0-0.045) ng/ml Total Protein (6.4-8.2) gm/dl Albumin (3.4-5.0) gm/dl Globulin (2.5-4.0) gm/dl Albumin/Globulin Ratio (0.9-2) Lipase (73-393) U/L Procalcitonin (0-0.5) ng/ml TSH (0.300-4.500) uIu/ml COVID-19 Eval [facility] SARS-CoV-2, RNA, NAAT (NEGATIVE) 05/10/20 Range/Units Unknown WBC (4.8-10.8) K/uL RBC (4.7-6.1) M/uL Hgb (14.0-18.0) g/dL Hct (42-52) % MCV (80-100) fL MCH (25-34) pg MCHC (32-36) g/dL RDW Std Deviation (36.4-46.3) fL RDW Coeff of Ynes (11.5-14.5) % Plt Count (130-400) K/uL MPV (7.4-10.4) fL Immature Gran % (Auto) % Neut % (Auto) % Lymph % (Auto) % [place] % (Auto) % Eos % (Auto) % Baso % (Auto) % Neut # (Auto) (1.4-6.5) K/uL Lymph # (Auto) (1.2-3.4) K/uL [place] # (Auto) (0.11-0.59) K/uL Eos # (Auto) (0-0.5) K/uL Baso # (Auto) (0-0.2) K/uL Immature Gran # (Auto) (0.00-0.02) K/uL PT (9.0-12.0) Seconds INR (0.9-1.1) Sodium (136-145) mmol/L Potassium (3.5-5.1) mmol/L Chloride (98-107) mmol/L Carbon Dioxide (21-32) mmol/L Anion Gap (3-11) BUN (7-18) mg/dl Creatinine (0.6-1.4) mg/dl Est Cr Clr Drug Dosing ml/min Est GFR ( Amer) Est GFR (Non-Af Amer) BUN/Creatinine Ratio (10-20) Glucose (70-99) mg/dl Lactate (0.4-2.0) mmol/L Calcium (8.5-10.1) mg/dl Magnesium (1.8-2.4) mg/dl Total Bilirubin (0.2-1) mg/dl AST (15-37) U/L ALT (12-78) U/L Alkaline Phosphatase (45-117) U/L Troponin I (0-0.045) ng/ml Total Protein (6.4-8.2) gm/dl Albumin (3.4-5.0) gm/dl Globulin (2.5-4.0) gm/dl Albumin/Globulin Ratio (0.9-2) Lipase (73-393) U/L Procalcitonin (0-0.5) ng/ml TSH (0.300-4.500) uIu/ml COVID-19 Eval Order SARS-CoV-2, RNA, NAAT NEGATIVE (NEGATIVE) (1) Metastatic disease Area of secondary neoplastic involvement: unspecified site Qualified Code(s): C79.9 - Secondary malignant neoplasm of unspecified site
--- NOTE | 2020-05-11 18:02 | Hospitalist Progress Note ---
Date of Service May 11, 2020 Assessment & Plan (1) Metastatic disease: given decadron discussed options - after time for consideration would like home w hospice will ask XRT for opinion just due to brain mets ?palliative benefit (2) Slurring of speech: Most likely secondary to brain metastases as above. -Dexamethasone d (3) Parkinson disease: Chronic. Progressive. Patient follows with Dr. Leyva -Continue Amantadine -Continue Carbidopa-Levodopa (4) Seizure-like activity: No seizure activity reported -Seizure precautions -Continue Keppra BID (5) Hypercholesterolemia: Chronic. Stable -Continue Atorvastatin F/E/N - Heplock. Electrolytes WNL - Gl=000, Regular diet/bitesized with aspiration precautions Ppx - SCDs to bilateral LE Code - DNR/DNI Dispo anticipate home tomorrow w hospice [facility] () [phone] Admission and Anticipated Discharge Date Admission Date: May 10, 2020 Subjective not really any meaningful HPI or ROS obtainable from pt called - updated, discussed what probable next steps would be. she was openly deciding what would be right for him vs what might be too much - given his baseline medical condition. initially sounding somewhat overwhelmed, she was still apt to have him transferred. after having some time to consider options, she felt strongly that home wiht hospice would be in his best interest. i supported this decision and by her request cancelled the transfer. did discuss XRT eval since brain mets ?palliative treatment of benefit. anticipate home w hospice tomorrow Review of Systems Review of Systems: Unobtainable due to cognitive status Physical Exam Physical Exam: gen awake, but not meaningfully verbal nad heent nc at mmm breathing unlabored no accessory muscles good effort skin no rashes no pallor or icterus Results & Data Results & Data ([facility]) Vital Signs (Past 12 Hours) Vital Signs Temp Pulse Pulse Resp BP Pulse Ox 05/11/20 17:21 86 05/11/20 15:30 98.4 F 91 H 16 109/67 92 05/11/20 11:44 98.8 F 86 18 103/67 90 05/11/20 07:47 78 05/11/20 07:18 97.7 F 84 18 128/81 92 PG Care Time/CCT Total # of Minutes Spent Total Time Spent with Patient: Total time spent is greater than 50% in coordination of care (as documented) at patient's floor/unit and/or counseling patient: Coding Level of Care Code 34224 Subseq Hosp Care Lvl 3 Diagnoses Metastatic disease C79.9 Area of secondary neoplastic involvement: unspecified site Slurring of speech R47.81 Parkinson disease G20 Seizure-like activity R56.9 Hypercholesterolemia E78.00 (1) Metastatic disease Area of secondary neoplastic involvement: unspecified site Qualified Code(s): C79.9 - Secondary malignant neoplasm of unspecified site
[2020-05-11 20:08] LABS: Appearance Urine Clear (Clear); Bacteria Urine Automated Negative (Negative); Bilirubin Urine Negative (Negative); Blood Urine Negative (Negative); Color Urine Dark Yellow; Glucose Urine UA Negative (Negative); Ketones Urine 1+ (Negative); Leukocyte Esterase Urine Trace (Negative); Nitrite Urine Negative (Negative); Protein Urine Negative (Negative); RBC Urine Automated 0-4 /hpf (0-4); Specific Gravity Urine 1.033 (1.000-1.030); Urobilinogen Urine Negative (Negative)
[2020-05-12] MEDS: RYTARY~NON-FORMULARY PATIENT'S OWN MED EXT SCH ×4 (06:18→15:28)
[2020-05-12] MEDS: ATORVASTATIN 20 MG TAB PO SCH (08:29)
[2020-05-12] MEDS: levETIRAcetam 250 MG TAB PO SCH (08:29)
[2020-05-12] MEDS ORDERED: dexAMETHasone 4 MG TAB PO SCH (09:00)
--- NOTE | 2020-05-12 17:00 | Discharge Summary ---
Date of Service May 12, 2020 Admission HPI Per Admitting Provider David Garcia is an unfortunate 65yo male with history of Parkinson's Disease and gait instability presenting with slurred speech. History obtained from at bedside as patient is unable to clearly articulate the events preceding admission. states that patient has had progressive fatigue over the last week as well as worsening rigidity and gait instability. He has been having difficulty ambulating and unable to stand. Today around 14:30 he developed slurred speech which prompted them to come to the ER. Patient has been having some mild abdominal discomfort and intermittent diarrhea over the last month, otherwise denies fever/chills/CP/SOB/palpitations/nausea/vomiting/constipation. He denies ROMAN or visual changes. Denies focal numbness/weakness/tingling. In the ER patient found to be afebrile, HD stable. Imaging revealed enhancing intraaxial mass of the right frontal and left occipital lobes with surrounding vasogenic edema as well as diffuse metastatic disease through the abdomen and p sharad including hepatic metastasis with extensive omental and peritoneal carcinomatosis and lymphatic metastasis as well. Possible primary lesion of the colon reflected by luminal narrowing in the sigmoid. Also 5mm solid nodule of the basal RLL. No midline shift or mass effect appreciated. Per request of , [facility] was contacted for possible transfer. Unfortunately, no beds are available right now. They are agreeable to admission here and consultation with our Oncologist and Palliative Care services as they await transfer to [facility]. ER Course: NSS x 500mL, Dexamethasone 10mg IV Principal Diagnosis new dx cancer - diffuse metastases - for home w hospice care Discharge Exam gen awake pleasant nad heent nc at mmm breathing unlabored no accessory muscles good effort skin no rashes no pallor or icterus Discharge Data Allergies Allergy/AdvReac Type Severity Reaction Status Date / Time No Known Allergies Allergy Unverified 05/10/20 19:33 Consultations 05/10/20 21:42 ED Decision to Admit Stat 05/11/20 00:34 Consult Oncology Routine 05/11/20 17:48 Consult Case Management - Discharge Planning Routine Ordered Studies 05/10/20 18:05 CT head/brain wo con Stat 05/10/20 18:07 CT abd pelvis IV con only Stat CT angio head w con Stat CT angio neck with con Stat Hospital Course (1) Metastatic disease: given decadron discussed options - after time for consideration would like home w hospice set up and stable for home/hospice today (2) Slurring of speech: Most likely secondary to brain metastases as above. -Dexamethasone -outpt f/u on ?possible weaning (3) Parkinson disease: Chronic. Progressive. Patient follows with Dr. Leyva -Continue Amantadine -Continue Carbidopa-Levodopa (4) Seizure-like activity: No seizure activity reported -Seizure precautions -Continue Keppra BID -decadron (5) Hypercholesterolemia: Chronic. can probably dc atorvastatin as outpt Total Time Total Time Spent Total Time Spent (In Minutes): <30 Discharge Plan Discharge Items Patient Disposition: Hospice - Home Reason For Visit: SLURRED SPEECH Discharge Diagnosis: diffusely metastatic malignancy Activity: Resume your previous activity Non-emergency contact: Primary Care Provider Call non-emergency contact if: you have any medication questions and your symptoms worsen Follow-up/Referrals: Tom Tripp III, CRNP [Primary Care Provider] - Diet: Regular Addtl Attending Provider Instructions: hospice will be an enormous resource for you as you go through this, don't hesitate to call or lean on them we'll have you on decadron (dexamethasone) - a steroid - 4mg daily for the foreseeable future - steroids like this can help reduce swelling around the spots that have shown up in your brain, and hopefully therefore help reduce symptoms. Tom Tripp can also help guide on if there were any need to alter the dose up or down based on how you're doing hospice usually prefers we send a prescription for pain medication in case you need it - at this point it's not likely you will in the near future but it's never a bad idea to have on hand if things arise -- to that end we've sent an Rx for roxanol (concentrated morphine) to the pharmacy. note - it's very concentrated, so dosing is very small. 0.25 milliliters is a 5mg dose (so basically a tiny amount is a medium dose of pain medicine) Pending Studies at Discharge: No Stand-Alone Forms: My [facility] Essential Medical, Smoking Cessation Medications and DC Order Prescriptions: New dexamethasone 4 mg Tablet 4 mg PO DAILY Qty: 30 RF: 0 morphine concentrate 100 mg/5 mL (20 mg/mL) solution 5 mg PO Q6H PRN (Reason: pain) Qty: 15 RF: 0 Continued sodium fluoride-pot nitrate [PreviDent 5000 Sensitive] 1.1-5 % paste See Rx Instructions .ROUTE .COMPLEX Qty: 100 RF: 11 Gocovri 137 mg capsule,extended release 24hr 137 mg PO DAILY Qty: 90 RF: 3 atorvastatin 20 mg tablet 20 mg PO DAILY Qty: 90 RF: 1 levetiracetam 250 mg tablet 250 mg PO BID Qty: 180 RF: 3 multivitamin [Multiple Vitamins] tablet 1 tab PO DAILY RF: 0 Rytary 48.75-195 mg capsule, extended release 2 cap PO .6XSDAY RF: 0 Inbrija 42 mg capsule 84 mg INH .5XSDAY PRN (Reason: ..) RF: 0 senna 8.6 mg capsule 8.6 mg PO BID PRN (Reason: constipation) Qty: 10 RF: 0 Discharge Orders: Discharge Order (Routine); Ordered 05/12/20 Ordered By: Dave Webber Admission Data Admit Date/Time: 05/10/20 22:15 Attending Provider: Dave Webber Admit Provider: Judy Barragan Primary Care Provider: Tom Tripp III Other Providers: Judy Barragan ; Sukhjinder Rodríguez V. Other Interventions: Discharge Summary Assessment (RN) Last Done: 05/12/20 15:56 Coding Level of Care Code D/C Day Management <30 mins Diagnoses Metastatic disease C79.9 Area of secondary neoplastic involvement: unspecified site Slurring of speech R47.81 Parkinson disease G20 Seizure-like activity R56.9 Hypercholesterolemia E78.00
== END 2020-05-12 16:46 | disposition hospice, home (50) ==
LOC: ED 17:40 → 2N 22:15 → SUATTDRO 22:15 → 2N 23:51